=== PATIENT | male | born 1940 | race African-American/Black ===

== ENCOUNTER 2017-02-25 21:54 | Emergency (ER) | payer MEDICARE, OTHER ==
[~2017-02-25] VITALS: Ht 172.7 cm; Wt 79.4 kg
[2017-02-25 22:00] VITALS: BP 199/91
[2017-02-25] MEDS ORDERED: DOXY100C2 PO (22:23)
--- NOTE | 2017-02-25 22:23 | PHYS DOC ---
Past Medical History Past Medical History: High Cholesterol, Hypertension, Other Additional Past Medical Histor: GOUT Past Surgical History: Other Additional Past Surgical Histo: HERNIA Alcohol Use: None Drug Use: None Adult General Chief Complaint Chief Complaint: INSECT BITE [facility] HPI Patient is a 77 year old male who presents with complaint of neck swelling after suffering a tick bite. Patient states that the tick bite occurred 2 days ago. Patient states that he started noticing swelling to the anterior portion of his neck earlier today. Patient denies any difficulty with speech or swallowing. Patient was unable to identify the tick which bit him. Due to the swelling, the patient was concerned about possibility of infection and came to the emergency department for evaluation. Patient denies any other symptoms and states that he is currently in his baseline state of health. Review of Systems Review of Systems Constitutional: Denies fever or chills [] Eyes: Denies change in visual acuity, redness, or eye pain [] HENT: Denies nasal congestion or sore throat [] Respiratory: Denies cough or shortness of breath [] Cardiovascular: No additional information not addressed in HPI [] GI: Denies abdominal pain, nausea, vomiting, bloody stools or diarrhea [] : Denies dysuria or hematuria [] Musculoskeletal: Denies back pain or joint pain [] Integument: Tick bite, swelling in neck [] Neurologic: Denies headache, focal weakness or sensory changes [] Allergies Allergies Allergies Coded Allergies Type Severity Reaction Last Updated Verified No Known Drug Allergies 08/26/15 No Physical Exam Physical Exam Constitutional: Alert, afebrile, no acute distress. [] HENT: Normocephalic, atraumatic, bilateral external ears normal, oropharynx moist, no oral exudates, nose normal. [] Eyes: PERRLA, EOMI, conjunctiva normal, no discharge. [] Neck: 2-1/2 cm swollen indurated lesion on anterior aspect of neck near larynx, freely mobile, surrounding erythema, nontender to palpation. [] Cardiovascular:Heart rate regular rhythm, no murmur [] Lungs & Thorax: Bilateral breath sounds clear to auscultation [] Abdomen: Bowel sounds normal, soft, no tenderness, no masses, no pulsatile masses. [] Skin: Warm, dry, no erythema, no rash. [] Back: No tenderness, no CVA tenderness. [] Extremities: No tenderness, no cyanosis, no clubbing, ROM intact, no edema. [] Neurologic: Alert and oriented X 3, normal motor function, normal sensory function, no focal deficits noted. [] Current Patient Data Vital Signs Vital Signs Date Time Temp Pulse Resp B/P (MAP) Pulse Ox O2 Delivery O2 Flow Rate FiO2 02/25/17 22:00 98.7 90 18 96 Room Air 98.7 EKG EKG Not performed [] Radiology/Procedures Radiology/Procedures Not performed [] Course & Med Decision Making Course & Med Decision Making Pertinent Labs and Imaging studies reviewed. (See chart for details) The patient's swelling appears to be consistent with lymphadenitis. Patient has overlying erythema which may be consistent with target lesion. The patient was started on a 14 day course of doxycycline. Recommended follow-up in one week with patient's primary doctor and return to emergency department for any worsening symptoms. Patient voiced understanding and in agreement with treatment plan. Dragon Disclaimer Dragon Disclaimer This electronic medical record was generated, in whole or in part, using a voice recognition dictation system. Departure Departure Impression: Primary Impression: Tick bite Additional Impression: Lymphadenitis Disposition: 01 HOME, SELF-CARE Condition: IMPROVED Referrals: PERCY LOWERY MD (PCP) Patient Instructions: Wood Tick Bite, [id number] Additional Instructions: You'll be started on doxycycline for treatment of possible Lyme disease transmission. This will consist of a 14 day course of antibiotics. It is recommended that she follow-up with your primary doctor in 1 week for reevaluation. Return to the emergency department for any worsening symptoms. Scripts Doxycycline Hyclate (DOXYCYCLINE HYCLATE) 100 Mg Capsule 1 CAP PO BID, #28 CAP Prov: LATRICIA MENA MD 02/25/17 Problem Qualifiers Primary Impression: Tick bite Encounter type: initial encounter Qualified Codes: W57.XXXA - Bitten or stung by nonvenomous insect and other nonvenomous arthropods, initial encounter LATRICIA MENA MD February 25, 2017 22:23
== END 2017-02-25 22:30 | disposition home or self-care (01) ==
LOC: ER 21:54
DX: S10.96XA Insect bite of unspecified part of neck, initial encounter (principal); I10 Essential (primary) hypertension; E78.00 Pure hypercholesterolemia, unspecified; M10.9 Gout, unspecified; W57.XXXA Bitten or stung by nonvenomous insect and other nonvenomous arthropods, initial encounter; Y93.89 Activity, other specified; Y99.8 Other external cause status; Y92.89 Other specified places as the place of occurrence of the external cause
CPT/HCPCS: 99283

== ENCOUNTER 2017-10-11 23:28 | Emergency (ER) | payer MEDICARE, OTHER ==
[2017-10-12] MEDS: HYDROcodone/APAP 5/325MG 1 TAB TABLET PO (00:14)
[2017-10-12] MEDS: CYCLOBENZAPRINE 10 MG TABLET. PO (00:14)
[2017-10-12] MEDS: IBUPROFEN 600 MG TABLET. PO (00:14)
== END 2017-10-12 00:40 | disposition home or self-care (01) ==
LOC: ER 10-12 00:40
DX: S43.401A Unspecified sprain of right shoulder joint, initial encounter (principal); E78.00 Pure hypercholesterolemia, unspecified; I10 Essential (primary) hypertension; M10.9 Gout, unspecified; X50.9XXA Other and unspecified overexertion or strenuous movements or postures, initial encounter; Y93.89 Activity, other specified; Y92.89 Other specified places as the place of occurrence of the external cause; Y99.8 Other external cause status
CPT/HCPCS: 73030; 99284

== ENCOUNTER 2018-02-10 21:06 | Emergency (ER) | payer MEDICARE, OTHER ==
[2018-02-10] MEDS: predniSONE 20 MG TABLET PO (22:10)
[2018-02-10] MEDS: HYDROcodone/APAP 5/325MG 1 TAB TABLET PO (22:11)
== END 2018-02-10 22:38 | disposition home or self-care (01) ==
LOC: ER 21:06
DX: M10.9 Gout, unspecified (principal); E78.00 Pure hypercholesterolemia, unspecified; I10 Essential (primary) hypertension
CPT/HCPCS: 99283; J7512

== ENCOUNTER 2018-03-22 10:53 | Emergency (ER) | payer MEDICARE, OTHER | END 2018-03-22 12:18 | disposition home or self-care (01) | LOC: ER 12:18 | DX: M18.12 Unilateral primary osteoarthritis of first carpometacarpal joint, left hand (principal); M19.032 Primary osteoarthritis, left wrist; E78.00 Pure hypercholesterolemia, unspecified; I10 Essential (primary) hypertension; M10.9 Gout, unspecified | CPT/HCPCS: 73140; 99284 ==

== ENCOUNTER 2018-05-19 10:29 | Inpatient (IN) | payer MEDICARE, OTHER ==
[~2018-05-19] VITALS: Ht 172.7 cm; Wt 82.1 kg
[~2018-05-19 10:29] MED LIST: ACET-704 PO; CYCL10TA2 PO; DICL100G18 TP; DICL50TA4 PO; DOXY100C2 PO; HYDR-971 PO; METH4TAB2 PO; TRAM50TA PO
--- NOTE | 2018-05-19 12:21 | RAD ---
Acute abdomen series with chest, 3 views, 05/19/2018: HISTORY: Abdominal pain There is mild gaseous distention of small bowel loops. There is very little colonic gas seen. The stomach also appears to be distended. No free air is evident in the abdomen. Moderate multilevel degenerative changes are present in the spine. The heart size and pulmonary vascularity are normal. There is mild streaky atelectasis in the left base. IMPRESSION: Gastric distention with mildly distended small bowel loops suggesting small bowel obstruction. Electronically signed by: Anderson Vang MD (05/19/2018 12:17 PM) [facility]
[2018-05-19 12:42] LABS: BASO % 0 % (0-3); EOS # 0.1 x10^3/uL (0.0-0.7); EOS % 1 % (0-3); HEMATOCRIT 42.5 % (39.0-53.0); HEMOGLOBIN 13.5 g/dL (13.0-17.5); LYMPH # 0.5 x10^3/uL (1.0-4.8); LYMPH % 4 % (24-48); MEAN CORPUSCULAR HEMOGLOBIN 23 pg (25-35); MEAN CORPUSCULAR HGB CONC 32 g/dL (31-37); MEAN CORPUSCULAR VOLUME 71 fL (79-100); MONO # 0.8 x10^3/uL (0.0-1.1); MONO % 6 % (0-9); NEUT # 11.3 x10^3uL (1.8-7.7); NEUT % 89 % (31-73); PLATELET COUNT 213 x10^3/uL (140-400); RED BLOOD COUNT 5.96 x10^6/uL (4.30-5.70); RED CELL DISTRIBUTION WIDTH 17.6 % (11.5-14.5); WHITE BLOOD COUNT 12.7 x10^3/uL (4.0-11.0)
[2018-05-19 12:44] LABS: BILIRUBIN,URINE NEGATIVE (NEG); CLARITY,URINE CLEAR; COLOR,URINE YELLOW; NITRITE,URINE NEGATIVE (NEG); PH,URINE 6.5; PROTEIN,URINE NEGATIVE (NEG-TRACE); UROBILINOGEN,URINE 0.2 mg/dL (0.2 mg/dL)
[2018-05-19 12:52] LABS: RBC,URINE OCC /HPF (0-2); WBC,URINE OCC /HPF (0-4)
[2018-05-19 12:53] LABS: BACTERIA,URINE 0 /HPF (0-FEW); HYALINE CASTS, URINE FEW /HPF
[2018-05-19] MEDS ORDERED: IV NORMAL SALINE 1000ML BAG 1,000 ML IV ONE (13:00)
[2018-05-19] MEDS ORDERED: fentaNYL PF VIAL 100 MCG/2 ML VIAL IV PRN (13:00)
[2018-05-19] MEDS ORDERED: ONDANSETRON PF 4 MG/2 ML VIAL. IV PRN (13:00)
[2018-05-19 13:45] LABS: ALBUMIN 3.7 g/dL (3.4-5.0); ALBUMIN/GLOBULIN RATIO 0.9 (1.0-1.7); CALCIUM 9.7 mg/dL (8.5-10.1); CREATININE 1.5 mg/dL (0.7-1.3); GFR 54.6; POTASSIUM 4.2 mmol/L (3.5-5.1); TOTAL BILIRUBIN 0.6 mg/dL (0.2-1.0); TOTAL PROTEIN 7.7 g/dL (6.4-8.2)
[2018-05-19 14:24] LABS: % BANDS 3 % (0-9); % EOS 1 % (0-5); % LYMPHS 4 % (24-48); % MONOS 7 % (0-10); % SEGS 85 % (35-66); PLT ESTIMATE ADEQUATE (ADEQUATE)
[2018-05-19 14:25] LABS: ANISOCYTOSIS SLIGHT; HYPOCHROMIA SLIGHT
[2018-05-19 14:26] LABS: MICROCYTOSIS MOD
[2018-05-19 14:27] LABS: TARGET CELLS OCC
--- NOTE | 2018-05-19 14:48 | PHYS DOC ---
Past Medical History Past Medical History: Cancer, High Cholesterol, Hypertension, Prostatitis, Other Additional Past Medical Histor: GOUT, PROSTATE CANCER Past Surgical History: Other Additional Past Surgical Histo: INGUINAL HERNIA SX,SEED IMPLANT FOR PROSTATE CA Alcohol Use: None Drug Use: None Adult General Chief Complaint Chief Complaint: ABDOMINAL PAIN HPI HPI Patient is a 78 year old male who presents with abdominal pain and distention. The patient thinks that he over ate a dinner last night. He had increasing abdominal pain throughout the day today. He states that he did have one small watery bowel movement. He denies nausea or vomiting at this time. Review of Systems Review of Systems Constitutional: Denies fever or chills [] Eyes: Denies change in visual acuity, redness, or eye pain [] HENT: Denies nasal congestion or sore throat [] Respiratory: Denies cough or shortness of breath [] Cardiovascular: No additional information not addressed in HPI [] GI: See history of present illness : Denies dysuria or hematuria [] Musculoskeletal: Denies back pain or joint pain [] Integument: Denies rash or skin lesions [] Neurologic: Denies headache, focal weakness or sensory changes [] Endocrine: Denies polyuria or polydipsia [] All other systems were reviewed and found to be within normal limits, except as documented in this note. Allergies Allergies Allergies Coded Allergies Type Severity Reaction Last Updated Verified No Known Drug Allergies 08/26/15 No Physical Exam Physical Exam Constitutional: Well developed, well nourished, no acute distress, non-toxic appearance. [] HENT: Normocephalic, atraumatic, bilateral external ears normal, oropharynx moist, no oral exudates, nose normal. [] Eyes: PERRLA, EOMI, conjunctiva normal, no discharge. [] Neck: Normal range of motion, no tenderness, supple, no stridor. [] Cardiovascular:Heart rate regular rhythm, no murmur [] Lungs & Thorax: Bilateral breath sounds clear to auscultation [] Abdomen: Bowel sounds normal, soft, no tenderness, no masses, no pulsatile masses. [] Skin: Warm, dry, no erythema, no rash. [] Back: No tenderness, no CVA tenderness. [] Extremities: No tenderness, no cyanosis, no clubbing, ROM intact, no edema. [] Neurologic: Alert and oriented X 3, normal motor function, normal sensory function, no focal deficits noted. [] Psychologic: Affect normal, judgement normal, mood normal. [] Current Patient Data Vital Signs Vital Signs Date Time Temp Pulse Resp B/P (MAP) Pulse Ox O2 Delivery O2 Flow Rate FiO2 05/19/18 12:38 92 21 143/75 (97) 98 Room Air 05/19/18 10:35 98.0 98.0 Lab Values Laboratory Tests Test 05/19/18 10:30 05/19/18 10:45 Urine Collection Type Unknown Urine Color Yellow Urine Clarity Clear Urine pH 6.5 Urine Specific [place] 1.020 Urine Protein Negative mg/dL (NEG-TRACE) Urine Glucose (UA) Negative mg/dL (NEG) Urine Ketones (Stick) Negative mg/dL (NEG) Urine Blood Negative (NEG) Urine Nitrite Negative (NEG) Urine Bilirubin Negative (NEG) Urine Urobilinogen Dipstick 0.2 mg/dL (0.2 mg/dL) Urine Leukocyte Esterase Negative (NEG) Urine RBC Occ /HPF (0-2) Urine WBC Occ /HPF (0-4) Urine Bacteria 0 /HPF (0-FEW) Urine Hyaline Casts Few /HPF Urine Mucus Slight /LPF White Blood Count 12.7 x10^3/uL (4.0-11.0) H Red Blood Count 5.96 x10^6/uL (4.30-5.70) H Hemoglobin 13.5 g/dL (13.0-17.5) Hematocrit 42.5 % (39.0-53.0) Mean Corpuscular Volume 71 fL (79-100) L Mean Corpuscular Hemoglobin 23 pg (25-35) L Mean Corpuscular Hemoglobin Concent 32 g/dL (31-37) Red Cell Distribution Width 17.6 % (11.5-14.5) H Platelet Count 213 x10^3/uL (140-400) Neutrophils (%) (Auto) 89 % (31-73) H Lymphocytes (%) (Auto) 4 % (24-48) L Monocytes (%) (Auto) 6 % (0-9) Eosinophils (%) (Auto) 1 % (0-3) Basophils (%) (Auto) 0 % (0-3) Neutrophils # (Auto) 11.3 x10^3uL (1.8-7.7) H Lymphocytes # (Auto) 0.5 x10^3/uL (1.0-4.8) L Monocytes # (Auto) 0.8 x10^3/uL (0.0-1.1) Eosinophils # (Auto) 0.1 x10^3/uL (0.0-0.7) Basophils # (Auto) 0.0 x10^3/uL (0.0-0.2) Segmented Neutrophils % 85 % (35-66) H Band Neutrophils % 3 % (0-9) Lymphocytes % 4 % (24-48) L Monocytes % 7 % (0-10) Eosinophils % 1 % (0-5) Platelet Estimate Adequate (ADEQUATE) Hypochromasia Slight Anisocytosis Slight Microcytosis Mod Target Cells Occ Laboratory Tests 05/19/18 10:45 EKG EKG [] Radiology/Procedures Radiology/Procedures []PATIENT: AGUILAR NOLANACCOUNT: [id number]#: [id number] : 1940 LOCATION: ER AGE: 78 SEX: M EXAM STATUS: REG ER ORD. PHYSICIAN: SHMUEL ALDRICH APRN REASON: abdominal pain PROCEDURE: ACUTE ABDOMEN SERIES Acute abdomen series with chest, 3 views, 05/19/2018: HISTORY: Abdominal pain There is mild gaseous distention of small bowel loops. There is very little colonic gas seen. The stomach also appears to be distended. No free air is evident in the abdomen. Moderate multilevel degenerative changes are present in the spine. The heart size and pulmonary vascularity are normal. There is mild streaky atelectasis in the left base. IMPRESSION: Gastric distention with mildly distended small bowel loops suggesting small bowel obstruction. Electronically signed by: Anderson Vang MD (05/19/2018 12:17 PM) [facility] DICTATED and SIGNED BY: ANDERSON VANG MD DATE: 05/19/18 1052 Course & Med Decision Making Course & Med Decision Making Pertinent Labs and Imaging studies reviewed. (See chart for details) []The patient has been admitted to Dr. Blackwood's service. He has been placed as NPO and is receiving IV fluids in the emergency room. He denies any for pain medication. He is in agreement with this plan. Dragon Disclaimer Dragon Disclaimer This electronic medical record was generated, in whole or in part, using a voice recognition dictation system. Departure Departure Impression: Primary Impression: Bowel obstruction Disposition: ADMITTED INPATIENT Admitting Physician: Pat Blackwood Condition: GOOD Referrals: PERCY LOWERY MD (PCP) SHMUEL ALDRICH APRN May 19, 2018 14:48
[2018-05-19 15:00] VITALS: BP 144/79
[2018-05-19] MEDS: IV NORMAL SALINE 1000ML BAG 1,000 ML IV SCH ×2 (15:52→21:39)
[2018-05-19] MEDS ORDERED: DEXTROSE 50% 25 GM / 50ML DISP.SYRIN. IV PRN (17:30)
[2018-05-19 19:00] VITALS: BP 152/69
--- NOTE | 2018-05-19 19:05 | EKG ---
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
[2018-05-19] MEDS ORDERED: TAMS0.4C2 PO (22:18)
[2018-05-19] MEDS ORDERED: ALPR0.5T6 PO (22:18)
[2018-05-19] MEDS ORDERED: PYRI200T3 PO (22:18)
[2018-05-19] MEDS ORDERED: ALLO300T PO (22:18)
[2018-05-19] MEDS ORDERED: LISI1TAB7 PO (22:18)
[2018-05-19] MEDS ORDERED: LOVA20TA2 PO (22:18)
[2018-05-19 23:00] VITALS: BP 144/68
[2018-05-20 03:00] VITALS: BP 156/60
[2018-05-20 05:32] LABS: CALCIUM 8.6 mg/dL (8.5-10.1); CREATININE 1.4 mg/dL (0.7-1.3); GFR 59.2; POTASSIUM 3.8 mmol/L (3.5-5.1)
[2018-05-20] MEDS: IV NORMAL SALINE 1000ML BAG 1,000 ML IV SCH (05:45)
[2018-05-20 07:15] VITALS: BP 141/70
[2018-05-20] MEDS ORDERED: ASPI-612 PO (07:44)
[2018-05-20] MEDS ORDERED: ALPRAZolam 0.5 MG TABLET PO PRN (07:45)
--- NOTE | 2018-05-20 07:53 | PDOC ---
PROGRESS NOTES Subjective Subjective Patient without complaint. Abdominal pain has resolved. Hungry for breakfast. Objective Objective Vital Signs Date Time Temp Pulse Resp B/P (MAP) Pulse Ox O2 Delivery O2 Flow Rate FiO2 05/20/18 03:00 98.9 89 18 156/60 (92) 97 Room Air 98.9 Intake and Output 05/20/18 06:59 Intake Total 4850 ml Output Total 800 ml Balance 4050 ml Intake Oral 0 ml IV Total 2925 ml Other 1925 ml Output Urine Total 800 ml Physical Exam Abdomen: Normal bowel sounds, Soft, No tenderness Heart: Regular rate Extremities: No edema General: Alert, Oriented X3, No acute distress Lungs: Clear to auscultation Plan Plan of Care 1. Partial SBO - appears to have resolved. Abdominal exam WNL. Trial of clear liquids now and advance at lunch. Home later today if tolerating diet. 2. HTN - continue home meds. 3. CKD III - stable on lab. 4. DM2 - diet-controlled. Comment Review of Relevant I have reviewed the following items mayela (where applicable) has been applied. Labs Laboratory Tests Test 05/19/18 10:30 05/19/18 10:45 05/19/18 13:18 05/19/18 21:37 Urine Collection Type Unknown Urine Color Yellow Urine Clarity Clear Urine pH 6.5 Urine Specific [place] 1.020 Urine Protein Negative mg/dL (NEG-TRACE) Urine Glucose (UA) Negative mg/dL (NEG) Urine Ketones (Stick) Negative mg/dL (NEG) Urine Blood Negative (NEG) Urine Nitrite Negative (NEG) Urine Bilirubin Negative (NEG) Urine Urobilinogen Dipstick 0.2 mg/dL (0.2 mg/dL) Urine Leukocyte Esterase Negative (NEG) Urine RBC Occ /HPF (0-2) Urine WBC Occ /HPF (0-4) Urine Bacteria 0 /HPF (0-FEW) Urine Hyaline Casts Few /HPF Urine Mucus Slight /LPF White Blood Count 12.7 x10^3/uL (4.0-11.0) Red Blood Count 5.96 x10^6/uL (4.30-5.70) Hemoglobin 13.5 g/dL (13.0-17.5) Hematocrit 42.5 % (39.0-53.0) Mean Corpuscular Volume 71 fL (79-100) Mean Corpuscular Hemoglobin 23 pg (25-35) Mean Corpuscular Hemoglobin Concent 32 g/dL (31-37) Red Cell Distribution Width 17.6 % (11.5-14.5) Platelet Count 213 x10^3/uL (140-400) Neutrophils (%) (Auto) 89 % (31-73) Lymphocytes (%) (Auto) 4 % (24-48) Monocytes (%) (Auto) 6 % (0-9) Eosinophils (%) (Auto) 1 % (0-3) Basophils (%) (Auto) 0 % (0-3) Neutrophils # (Auto) 11.3 x10^3uL (1.8-7.7) Lymphocytes # (Auto) 0.5 x10^3/uL (1.0-4.8) Monocytes # (Auto) 0.8 x10^3/uL (0.0-1.1) Eosinophils # (Auto) 0.1 x10^3/uL (0.0-0.7) Basophils # (Auto) 0.0 x10^3/uL (0.0-0.2) Segmented Neutrophils % 85 % (35-66) Band Neutrophils % 3 % (0-9) Lymphocytes % 4 % (24-48) Monocytes % 7 % (0-10) Eosinophils % 1 % (0-5) Platelet Estimate Adequate (ADEQUATE) Hypochromasia Slight Anisocytosis Slight Microcytosis Mod Target Cells Occ Sodium Level 141 mmol/L (136-145) Potassium Level 4.2 mmol/L (3.5-5.1) Chloride Level 103 mmol/L (98-107) Carbon Dioxide Level 32 mmol/L (21-32) Anion Gap 6 (6-14) Blood Urea Nitrogen 27 mg/dL (8-26) Creatinine 1.5 mg/dL (0.7-1.3) Estimated GFR (Cockcroft-Gault) 54.6 BUN/Creatinine Ratio 18 (6-20) Glucose Level 112 mg/dL (70-99) Calcium Level 9.7 mg/dL (8.5-10.1) Total Bilirubin 0.6 mg/dL (0.2-1.0) Aspartate Amino Transf (AST/SGOT) 17 U/L (15-37) Alanine Aminotransferase (ALT/SGPT) 22 U/L (16-63) Alkaline Phosphatase 63 U/L (46-116) Total Protein 7.7 g/dL (6.4-8.2) Albumin 3.7 g/dL (3.4-5.0) Albumin/Globulin Ratio 0.9 (1.0-1.7) Glucose (Fingerstick) 86 mg/dL (70-99) Test 05/20/18 04:00 05/20/18 07:23 Sodium Level 140 mmol/L (136-145) Potassium Level 3.8 mmol/L (3.5-5.1) Chloride Level 106 mmol/L (98-107) Carbon Dioxide Level 27 mmol/L (21-32) Anion Gap 7 (6-14) Blood Urea Nitrogen 21 mg/dL (8-26) Creatinine 1.4 mg/dL (0.7-1.3) Estimated GFR (Cockcroft-Gault) 59.2 Glucose Level 88 mg/dL (70-99) Calcium Level 8.6 mg/dL (8.5-10.1) Glucose (Fingerstick) 96 mg/dL (70-99) Laboratory Tests Test 05/19/18 10:30 05/19/18 10:45 05/19/18 13:18 05/19/18 21:37 Urine Collection Type Unknown Urine Color Yellow Urine Clarity Clear Urine pH 6.5 Urine Specific [place] 1.020 Urine Protein Negative mg/dL (NEG-TRACE) Urine Glucose (UA) Negative mg/dL (NEG) Urine Ketones (Stick) Negative mg/dL (NEG) Urine Blood Negative (NEG) Urine Nitrite Negative (NEG) Urine Bilirubin Negative (NEG) Urine Urobilinogen Dipstick 0.2 mg/dL (0.2 mg/dL) Urine Leukocyte Esterase Negative (NEG) Urine RBC Occ /HPF (0-2) Urine WBC Occ /HPF (0-4) Urine Bacteria 0 /HPF (0-FEW) Urine Hyaline Casts Few /HPF Urine Mucus Slight /LPF White Blood Count 12.7 x10^3/uL (4.0-11.0) Red Blood Count 5.96 x10^6/uL (4.30-5.70) Hemoglobin 13.5 g/dL (13.0-17.5) Hematocrit 42.5 % (39.0-53.0) Mean Corpuscular Volume 71 fL (79-100) Mean Corpuscular Hemoglobin 23 pg (25-35) Mean Corpuscular Hemoglobin Concent 32 g/dL (31-37) Red Cell Distribution Width 17.6 % (11.5-14.5) Platelet Count 213 x10^3/uL (140-400) Neutrophils (%) (Auto) 89 % (31-73) Lymphocytes (%) (Auto) 4 % (24-48) Monocytes (%) (Auto) 6 % (0-9) Eosinophils (%) (Auto) 1 % (0-3) Basophils (%) (Auto) 0 % (0-3) Neutrophils # (Auto) 11.3 x10^3uL (1.8-7.7) Lymphocytes # (Auto) 0.5 x10^3/uL (1.0-4.8) Monocytes # (Auto) 0.8 x10^3/uL (0.0-1.1) Eosinophils # (Auto) 0.1 x10^3/uL (0.0-0.7) Basophils # (Auto) 0.0 x10^3/uL (0.0-0.2) Segmented Neutrophils % 85 % (35-66) Band Neutrophils % 3 % (0-9) Lymphocytes % 4 % (24-48) Monocytes % 7 % (0-10) Eosinophils % 1 % (0-5) Platelet Estimate Adequate (ADEQUATE) Hypochromasia Slight Anisocytosis Slight Microcytosis Mod Target Cells Occ Sodium Level 141 mmol/L (136-145) Potassium Level 4.2 mmol/L (3.5-5.1) Chloride Level 103 mmol/L (98-107) Carbon Dioxide Level 32 mmol/L (21-32) Anion Gap 6 (6-14) Blood Urea Nitrogen 27 mg/dL (8-26) Creatinine 1.5 mg/dL (0.7-1.3) Estimated GFR (Cockcroft-Gault) 54.6 BUN/Creatinine Ratio 18 (6-20) Glucose Level 112 mg/dL (70-99) Calcium Level 9.7 mg/dL (8.5-10.1) Total Bilirubin 0.6 mg/dL (0.2-1.0) Aspartate Amino Transf (AST/SGOT) 17 U/L (15-37) Alanine Aminotransferase (ALT/SGPT) 22 U/L (16-63) Alkaline Phosphatase 63 U/L (46-116) Total Protein 7.7 g/dL (6.4-8.2) Albumin 3.7 g/dL (3.4-5.0) Albumin/Globulin Ratio 0.9 (1.0-1.7) Glucose (Fingerstick) 86 mg/dL (70-99) Test 05/20/18 04:00 05/20/18 07:23 Sodium Level 140 mmol/L (136-145) Potassium Level 3.8 mmol/L (3.5-5.1) Chloride Level 106 mmol/L (98-107) Carbon Dioxide Level 27 mmol/L (21-32) Anion Gap 7 (6-14) Blood Urea Nitrogen 21 mg/dL (8-26) Creatinine 1.4 mg/dL (0.7-1.3) Estimated GFR (Cockcroft-Gault) 59.2 Glucose Level 88 mg/dL (70-99) Calcium Level 8.6 mg/dL (8.5-10.1) Glucose (Fingerstick) 96 mg/dL (70-99) Medications Current Medications Sodium Chloride 1,000 ml @ 1,000 mls/hr 1X ONCE IV Last administered on at 13:05; Start 05/19/18 at 13:00; Stop 05/19/18 at 13:59; Status DC Ondansetron HCl (Zofran) 4 mg PRN Q8HRS PRN IV NAUSEA/VOMITING Last administered on 05/19/18at 14:19; Start 05/19/18 at 13:00; Stop 05/20/18 at 12:59 Fentanyl Citrate (Fentanyl 2ml Vial) 50 mcg PRN Q2HR PRN IV PAIN Last administered on 05/19/18at 14:22; Start 05/19/18 at 13:00; Stop 05/20/18 at 12:59 Sodium Chloride 1,000 ml @ 125 mls/hr Q8H IV Last administered on 05/20/18at 05 :45; Start 05/19/18 at 12:49; Stop 05/20/18 at 12:48 Insulin Human Lispro (HumaLOG) 0-5 UNITS TIDWMEALS SQ ; Start 05/20/18 at 08:00 Dextrose (Dextrose 50%-Water Syringe) 12.5 gm PRN Q15MIN PRN IV SEE COMMENTS; Start 05/19/18 at 17:30 Allopurinol (Zyloprim) 300 mg DAILY PO ; Start 05/20/18 at 09:00 Alprazolam (Xanax) 0.5 mg PRN DAILY PRN PO ANXIETY / AGITATION; Start 05/20/18 at 07:45 Aspirin (Ecotrin) 81 mg DAILY PO ; Start 05/20/18 at 09:00; Status UNV Tamsulosin HCl (Flomax) 0.4 mg DAILYWSUP PO ; Start 05/20/18 at 17:00; Status UNV Non-Formulary Medication (Lisinopril/ Hydrochlorothiazide (Lisinopril-Hctz 20- 25 Mg Tab)) 1 tab DAILY PO ; Start 05/20/18 at 09:00; Status UNV Non-Formulary Medication (Lovastatin ) 20 mg BID PO ; Start 05/20/18 at 09:00; Status UNV Non-Formulary Medication (Pyridoxine HCl (Vitamin B6) (B-6)) 100 mg DAILY PO ; Start 05/20/18 at 09:00; Status UNV Active Scripts Active Aspirin Ec (Aspirin) 81 Mg Tablet.dr 1 Tab PO DAILY Reported B-6 (Pyridoxine HCl (Vitamin B6)) 200 Mg Tablet.er 100 Mg PO DAILY Tamsulosin Hcl 0.4 Mg Cap.er.24h 1 Cap PO DAILYWSUP Allopurinol 300 Mg Tablet 1 Tab PO DAILY Lisinopril-Hctz 20-25 Mg Tab (Lisinopril/Hydrochlorothiazide) 1 Each Tablet 1 Tab PO DAILY Lovastatin 20 Mg Tablet 20 Mg PO BID Alprazolam 0.5 Mg Tablet 0.5 Mg PO PRN PRN Vitals/I & O Vital Sign - Last 24 Hours 05/19/18 05/19/18 05/19/18 05/19/18 10:35 11:08 11:38 12:08 Temp 98.0 98.0 Pulse 102 90 90 90 Resp 20 15 B/P (MAP) 206/100 (135) 173/74 (107) 174/140 (151) 169/75 (106) Pulse Ox 97 94 96 95 O2 Delivery Room Air Room Air Room Air Room Air 05/19/18 05/19/18 05/19/18 05/19/18 12:38 13:08 13:38 14:08 Pulse 92 94 90 86 Resp 21 20 B/P (MAP) 143/75 (97) 186/84 (118) 184/84 (117) 171/81 (111) Pulse Ox 98 97 96 97 O2 Delivery Room Air Room Air Room Air Room Air 05/19/18 05/19/18 05/19/18 05/19/18 14:22 15:00 16:47 19:00 Temp 97.9 98.8 97.9 98.8 Pulse 89 87 Resp 18 B/P (MAP) 144/79 (100) 152/69 (96) Pulse Ox 96 94 97 O2 Delivery Room Air Room Air Room Air Room Air 05/19/18 05/19/18 05/20/18 20:00 23:00 03:00 Temp 98.9 98.9 98.9 98.9 Pulse 88 89 Resp 18 B/P (MAP) 144/68 (93) 156/60 (92) Pulse Ox 97 97 O2 Delivery Room Air Room Air Room Air Intake and Output 05/19/18 05/19/18 05/20/18 14:59 22:59 06:59 Intake Total 1000 ml 1000 ml 2850 ml Output Total 800 ml Balance 1000 ml 1000 ml 2050 ml TULIO MCKENNA MD May 20, 2018 07:53
[2018-05-20] MEDS: INSULIN LISPRO 300 UNITS/3 ML INSULN.PEN. SQ SCH ×2 (08:00→12:00)
[2018-05-20] MEDS ORDERED: LISINOPRIL 20 MG TABLET PO SCH (09:00)
[2018-05-20] MEDS ORDERED: PYRIDOXINE 50 MG TABLET. PO SCH (09:00)
[2018-05-20] MEDS ORDERED: ATORVASTATIN CALCIUM 10 MG TABLET. PO SCH (09:00)
[2018-05-20] MEDS ORDERED: hydroCHLOROthiazide 25 MG TABLET PO SCH (09:00)
[2018-05-20] MEDS ORDERED: ASPIRIN ENTERIC COATED 81 MG TABLET.DR. PO SCH (09:00)
[2018-05-20] MEDS ORDERED: ALLOPURINOL 300 MG TABLET. PO SCH (09:00)
--- NOTE | 2018-05-20 09:59 | SSS ---
ADMIT DATE: 05/20/2018 CHIEF COMPLAINT: Abdominal pain. HISTORY OF PRESENT ILLNESS: The patient is a 78-year-old male who presented to the Emergency Room with the above complaint. He reports that he had been feeling fine until after dinner on the day prior to admission. He admits he may have eaten more than he usually does at this meal. Afterwards, he started to have some epigastric discomfort. He tried taking some bleu-bfw-treyipg medication, but it did not seem to help. His discomfort worsened overnight. He did not have any emesis, but did have some nausea. When his symptoms persisted, he came to the Emergency Room. X-rays showed evidence of a possible small-bowel obstruction and the patient was admitted for further care. PAST MEDICAL HISTORY: Hypertension; hyperlipidemia; BPH; chronic anxiety; gout; prostate cancer; diabetes mellitus type 2, diet controlled; and chronic kidney disease, stage 3. PAST SURGICAL HISTORY: [place] implants to the prostate; hernia repair; ganglion cyst, left wrist. ALLERGIES: The patient has no known drug allergies. HOME MEDICATIONS: Lisinopril/hydrochlorothiazide 20/25 one daily; lovastatin 20 mg b.i.d.; Flomax 0.4 mg daily; allopurinol 300 mg daily; niacin 500 mg at bedtime; Xanax 0.5 mg p.r.n.; aspirin 81 mg daily; vitamin D 50,000 units monthly. FAMILY HISTORY: Noncontributory. SOCIAL HISTORY: The patient is . He has never smoked cigarettes. He does not drink alcohol to excess. 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 REVIEW OF SYSTEMS: The patient denies fever or chills. He denies cough or shortness of breath. He denies chest pain or palpitations. He denies any abdominal pain at this time. He denies constipation. He had a few small loose stools yesterday, but has not had any since he was admitted. He denies dysuria or difficulty urinating. He denies lower extremity edema. PHYSICAL EXAMINATION: GENERAL: The patient is alert and oriented x 3, resting comfortably in bed, in no acute distress. HEENT: PERRL, EOMI, sclerae clear. Oropharynx: Mucous membranes moist. NECK: Supple, without lymphadenopathy. CHEST: Clear to auscultation. CARDIOVASCULAR: Regular rhythm without murmur. ABDOMEN: Soft, nontender throughout. Normoactive bowel sounds are present. EXTREMITIES: Without edema. HOSPITAL COURSE: The patient's lab at admission showed a mildly elevated white blood count at 12.7, but was otherwise remarkable. He was made n.p.o. and kept on IV fluids overnight. The patient had no emesis since admission. He reported that his abdominal pain had completely resolved and he felt hungry for breakfast. He was given a trial of clear liquids at breakfast and his diet was advanced at lunch. He tolerated these meals well with no further abdominal pain and was therefore discharged home after lunch. The patient's chronic medical conditions appear stable and he is to continue his usual medications for hypertension. His chronic kidney disease stage 3 is stable on lab. His diabetes is diet controlled. FINAL DIAGNOSES: 1. Partial small-bowel obstruction. 2. Hypertension. 3. Chronic kidney disease stage 3. 4. Diabetes mellitus type 2, diet controlled. DISCHARGE MEDICATIONS: Remain the same as at admission. FOLLOWUP: Followup is with Dr. Linn as needed. TULIO MCKENNA MD DR: ANJALI/jc JOB#: [id number] / [id number] VITA
[2018-05-20 11:17] VITALS: BP 139/72
[2018-05-20 15:10] VITALS: BP 151/72
[2018-05-20] MEDS ORDERED: TAMSULOSIN 0.4 MG CAP.ER.24H. PO SCH (17:00)
== END 2018-05-20 17:04 | disposition home or self-care (01) | DRG 389 ==
LOC: ER 10:29 → 4 NORTH 12:41
PROVIDERS: ADMIT Family Medicine; ATTEND Family Medicine
DX: K56.600 Partial intestinal obstruction, unspecified as to cause (principal); R65.10 Systemic inflammatory response syndrome (SIRS) of non-infectious origin without acute organ dysfunction; I12.9 Hypertensive chronic kidney disease with stage 1 through stage 4 chronic kidney disease, or unspecified chronic kidney disease; M10.9 Gout, unspecified; N18.3 Chronic kidney disease, stage 3 (moderate); E78.00 Pure hypercholesterolemia, unspecified; K40.90 Unilateral inguinal hernia, without obstruction or gangrene, not specified as recurrent; E11.22 Type 2 diabetes mellitus with diabetic chronic kidney disease; E78.5 Hyperlipidemia, unspecified; N40.0 Benign prostatic hyperplasia without lower urinary tract symptoms; F41.9 Anxiety disorder, unspecified; Z85.46 Personal history of malignant neoplasm of prostate
CPT/HCPCS: 36415; 74022; 80048; 80053; 81001; 82962; 85007; 85025; 93005; 96361; 96374; 96375; J1815; J2405; J3010; J7030; 99285-25

== ENCOUNTER → 2019-03-04 | Outpatient (CLI) | payer MEDICARE, OTHER ==
[~2019-03-04] MED LIST changes: +ALLO300T PO; +ALPR0.5T6 PO; +ASPI-612 PO; +HYDR-3164 PO; -HYDR-971 PO; +LISI1TAB7 PO; +LOVA20TA2 PO; +PYRI200T3 PO; +TAMS0.4C2 PO
[2019-03-04 09:24] LABS: HEMATOCRIT 38.6 % (39.0-53.0)
[2019-03-04 09:31] LABS: ALBUMIN 3.3 g/dL (3.4-5.0); CALCIUM 9.1 mg/dL (8.5-10.1); CREATININE 1.7 mg/dL (0.7-1.3); GFR 47.2; PHOSPHORUS 2.8 mg/dL (2.6-4.7); URIC ACID 4.8 mg/dL (3.5-7.2)
[2019-03-04 19:09] LABS: CREATININE PTH 1.58 mg/dL (0.76-1.27); PHOSPHORUS PTH 2.6 mg/dL (2.5-4.5); PTH INTACT 45 pg/mL (15-65)
[2019-03-05 00:08] LABS: MICRO CREAT RATIO 2.8 mg/g creat (0.0-30.0)
== END | disposition home or self-care (01) ==
LOC: LAB 08:22
PROVIDERS: ATTEND Internal Medicine Nephrology
DX: I12.9 Hypertensive chronic kidney disease with stage 1 through stage 4 chronic kidney disease, or unspecified chronic kidney disease (principal); E11.22 Type 2 diabetes mellitus with diabetic chronic kidney disease; N18.3 Chronic kidney disease, stage 3 (moderate); E55.9 Vitamin D deficiency, unspecified; Z68.28 Body mass index [BMI] 28.0-28.9, adult
CPT/HCPCS: 36415; 80069; 82043; 82306; 82570; 83735; 83970; 84550; 85014; 85018

== ENCOUNTER 2019-04-26 10:05 | Emergency (ER) | payer MEDICARE ==
[~2019-04-26] VITALS: Ht 162.6 cm; Wt 83.9 kg
[~2019-04-26 10:05] MED LIST changes: +ORPH100T PO
[2019-04-26 10:28] VITALS: BP 165/81
[2019-04-26] MEDS ORDERED: KETOROLAC 60 MG/2 ML VIAL. IM ONE (11:00)
[2019-04-26] MEDS ORDERED: methylPREDNISolone SOD SUCC PF 125 MG/2 ML VIAL. IM ONE (11:00)
--- NOTE | 2019-04-26 11:49 | RAD ---
C-spine 3 views. HISTORY: Left-sided neck pain 3 views were taken of the cervical spine with an additional swimmer's view. There is disc space narrowing at C3-4, C5-6 and C6-7 with hypertrophic spurring. There is slight anterior subluxation of C4 relative to C5. There is no acute fracture. There are also hypertrophic changes at C7-T1. Odontoid is poorly seen on the open-mouth views. IMPRESSION: 1. Degenerative spondylosis in the cervical spine. 2. Mild subluxation C4-5. 3. No acute fracture. Electronically signed by: Lavon Peres MD (04/26/2019 11:46 AM) [facility]
[2019-04-26] MEDS ORDERED: IBUP-1007 PO (12:22)
[2019-04-26] MEDS ORDERED: PRED20TA PO (12:22)
--- NOTE | 2019-04-26 12:22 | PHYS DOC ---
Past Medical History Past Medical History: Cancer, High Cholesterol, Hypertension, Prostatitis, Other Additional Past Medical Histor: GOUT, PROSTATE CANCER Past Surgical History: Other Additional Past Surgical Histo: INGUINAL HERNIA SX,SEED IMPLANT FOR PROSTATE CA Alcohol Use: None Drug Use: None Adult General Chief Complaint Chief Complaint: ALTERED MENTAL STATUS [facility] HPI Patient is a 79 year old male who was brought here by his for evaluation of confusion the taking Norflex and Matthews together. HE was evaluated here a few days ago for neck pain, patient said he woke up one morning with pain in the base of his left neck area, no injury. Patient was seen here, diagnosed with muscle strain, he was prescribed Matthews and Norflex to take at home as needed for pain and muscle relaxer. He says since taking the medication he had episode of hallucination dizziness and confusion. he still has neck pain so he came here for evaluation. Patient denies any headache, no chest pain, no trouble breathing. he denies any weakness or numbness in upper extremity. He did not take any of his medication today, he denies any hallucination or confusion THIS MORNING. Denies homicidal, suicidal ideation. Review of Systems Review of Systems Constitutional: Denies fever or chills [] Eyes: Denies change in visual acuity, redness, or eye pain [] HENT: Denies nasal congestion or sore throat [] Respiratory: Denies cough or shortness of breath [] Cardiovascular: No additional information not addressed in HPI [] GI: Denies abdominal pain, nausea, vomiting, bloody stools or diarrhea [] : Denies dysuria or hematuria [] Musculoskeletal: Denies back pain or joint pain. POSITIVE FOR NECK PAIN Integument: Denies rash or skin lesions [] Neurologic: Denies headache, focal weakness or sensory changes. Positive for episode of hallucination, confusion. Endocrine: Denies polyuria or polydipsia [] All other systems were reviewed and found to be within normal limits, except as documented in this note. Current Medications Current Medications Current Medications Medications (Trade) Dose Ordered Sig/Jovany Start Time Stop Time Status Last Admin Dose Admin Ketorolac Tromethamine (Toradol Im) 60 mg 1X ONCE 04/26/19 11:00 04/26/19 11:01 DC 04/26/19 10:40 60 MG Methylprednisolone Sodium Succinate (SOLU-Medrol 125MG VIAL) 125 mg 1X ONCE 04/26/19 11:00 04/26/19 11:01 DC 04/26/19 10:40 125 MG Allergies Allergies Allergies Coded Allergies Type Severity Reaction Last Updated Verified No Known Drug Allergies 08/26/15 No Physical Exam Physical Exam Constitutional: Well developed, well nourished, no acute distress, non-toxic appearance. [] HENT: Normocephalic, atraumatic, bilateral external ears normal, oropharynx moist, no oral exudates, nose normal. [] Eyes: PERRLA, EOMI, conjunctiva normal, no discharge. [] Neck: Normal range of motion, no tenderness, supple, no stridor. [] Cardiovascular:Heart rate regular rhythm, no murmur [] Lungs & Thorax: Bilateral breath sounds clear to auscultation [] Abdomen: Bowel sounds normal, soft, no tenderness, no masses, no pulsatile masses. [] Skin: Warm, dry, no erythema, no rash. [] Back: No tenderness, no CVA tenderness. [] Extremities: No tenderness, no cyanosis, no clubbing, ROM intact, no edema. [] Neurologic: Alert and oriented X 3, normal motor function, normal sensory function, no focal deficits noted. [] Psychologic: Affect normal, judgement normal, mood normal. [] Current Patient Data Vital Signs Vital Signs Date Time Temp Pulse Resp B/P (MAP) Pulse Ox O2 Delivery O2 Flow Rate FiO2 04/26/19 10:28 98.1 106 20 165/81 (109) 97 Room Air 98.1 EKG EKG [] Radiology/Procedures Radiology/Procedures [][facility] [address] [place] [address] IMAGING REPORT Signed PATIENT: AGUILAR NOLAN ACCOUNT: [id number] : 1940 LOCATION: ER AGE: 79 SEX: M EXAM STATUS: REG ER ORD. PHYSICIAN: CORNELIO SOL DO REASON: LEFT SIDE NECK PAIN FOR 4 DAYS. UNABLE TO RAISE CHIN PROCEDURE: CERVICAL SPINE 2-3V C-spine 3 views. HISTORY: Left-sided neck pain 3 views were taken of the cervical spine with an additional swimmer's view. There is disc space narrowing at C3-4, C5-6 and C6-7 with hypertrophic spurring. There is slight anterior subluxation of C4 relative to C5. There is no acute fracture. There are also hypertrophic changes at C7-T1. Odontoid is poorly seen on the open-mouth views. IMPRESSION: 1. Degenerative spondylosis in the cervical spine. 2. Mild subluxation C4-5. 3. No acute fracture. Electronically signed by: Lavon Peres MD (04/26/2019 11:46 AM) [facility] DICTATED and SIGNED BY: LAVON PERES MD DATE: 04/26/19 1146 Course & Med Decision Making Course & Med Decision Making Pertinent Labs and Imaging studies reviewed. (See chart for details) Patient was given a shot of steroid and Toradol in ER, he felt much better.. Patient WILL be discharged home with prednisone and anti-inflammatory medication. He will need to follow with his family doctor for further evaluation if his symptoms are not improving IN A FEW DAY. Dragon Disclaimer Dragon Disclaimer This electronic medical record was generated, in whole or in part, using a voice recognition dictation system. Departure Departure Impression: Primary Impression: Torticollis, acute Disposition: 01 HOME, SELF-CARE Condition: IMPROVED Referrals: PERCY LOWERY MD (PCP) FOLLOW UP WITH YOUR DOCTOR NEXT WEEK. DO NOT COMBINE HYDROCODONE AND NORFLEX TOGETHER. Patient Instructions: Torticollis, Acute Scripts Ibuprofen (IBUPROFEN) 600 Mg Tablet 600 MG PO PRN Q8HRS PRN for PAIN for 5 Days, #20 TAB Prov: CORNELIO SOL DO 04/26/19 Prednisone (PREDNISONE) 20 Mg Tablet 2 TAB PO DAILY for 7 Days, #14 TAB Prov: CORNELIO SOL DO 04/26/19 CORNELIO SOL DO Apr 26, 2019 12:22
== END 2019-04-26 12:39 | disposition home or self-care (01) ==
LOC: ER 10:05
DX: M43.6 Torticollis (principal); R42 Dizziness and giddiness; R44.3 Hallucinations, unspecified; R41.0 Disorientation, unspecified; M47.812 Spondylosis without myelopathy or radiculopathy, cervical region; E78.00 Pure hypercholesterolemia, unspecified; I10 Essential (primary) hypertension; M10.9 Gout, unspecified
CPT/HCPCS: 72040; 96372; 99284; J1885; J2930

== ENCOUNTER → 2019-06-10 | Outpatient (CLI) | payer MEDICARE ==
[~2019-06-10] MED LIST changes: +IBUP-1007 PO; +LISI1TAB20 PO; -LISI1TAB7 PO; +PRED20TA PO
--- NOTE | 2019-06-10 08:28 | RAD ---
Bilateral lower extremity arterial ultrasound History: Left toe ulcer Findings: Multiple grayscale, color, and duplex spectral analysis sonographic images were acquired of the lower extremity arteries bilaterally. There are no previous similar exams. Diffuse atherocalcific disease identified involving left lower external arterial vasculature. Velocities in cm/sec: LEFT: Common femoral artery 100 with triphasic flow Profunda femoris artery 112 with monophasic flow Proximal SFA no flow detected Mid SFA no flow detected Distal SFA no flow detected Popliteal artery 20 Anterior tibial artery no flow detected Dorsalis pedis artery no flow detected Posterior tibial artery 34 Peroneal artery 40 Monophasic flow is identified from the popliteal artery and more distally where flow is detected. Impression: No flow detected involving the superficial femoral artery, anterior tibial artery, and dorsalis pedis arteries with atheromatous and calcific findings compatible with chronic occlusion. Diminished flow more distally in the left lower extremity also seen. Monophasic flow of the profunda femoris artery which is suggestive of diffuse atherosclerotic disease. Electronically signed by: Emmanuel Tinoco MD (06/10/2019 8:25 AM) [facility]
--- NOTE | 2019-06-10 08:56 | RAD ---
3 view study of the toes of the left foot Clinical indications: Second toe ulcer. FINDINGS: No acute fracture or dislocation or lytic process is evident. No soft tissue air is seen. 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 IMPRESSION: No acute osseous abnormality. Electronically signed by: Florian Dyer MD (06/10/2019 8:53 AM) [facility]
== END | disposition home or self-care (01) ==
LOC: US 07:34
PROVIDERS: ATTEND Podiatrist
DX: M19.072 Primary osteoarthritis, left ankle and foot (principal); M21.612 Bunion of left foot; L97.429 Non-pressure chronic ulcer of left heel and midfoot with unspecified severity; I70.202 Unspecified atherosclerosis of native arteries of extremities, left leg
CPT/HCPCS: 73660; 93926

== ENCOUNTER → 2019-06-16 | Outpatient (CLI) | payer MEDICARE ==
[~2019-06-16] MED LIST changes: +CONTRAST GIVEN. MC PRN; +IOHEXOL 350 MG/ML 100 ML VIAL. IV ONE; +METO25TA4 PO; +NIAC500T PO
[2019-06-16 08:41] LABS: CREATININE 1.6 mg/dL (0.7-1.3); GFR 50.6
--- NOTE | 2019-06-16 14:46 | RAD ---
CLINICAL HISTORY: DVT, nonhealing ulceration COMPARISON: none TECHNIQUE:CT angiography of the abdomen, pelvis and lower extremities following the administration of intravenous contrast. Axial, coronal and sagittal reformatted images were obtained. 3-D reformats were generated including MIP images. ---PQRS compliance statement - One or more of the following individualized dose reduction techniques were utilized for this study: 1. Automated exposure control 2. Adjustment of the mA and/or kV according to patient size 3. Use of iterative reconstruction technique--- FINDINGS: CT ANGIOGRAM: Intermittent atherosclerotic calcifications and atheromatous plaque of the visualized aorta without high-grade stenosis. Inferior to the KM there is approximately 15 percent luminal narrowing. There is approximately 40 percent narrowing at the origin of the celiac trunk with atheromatous plaque. The origins of the left gastric, splenic and hepatic arteries are grossly patent. SMA is widely patent. There is approximately 50 percent narrowing at the origin of the KM, otherwise patent. Common iliac arteries bilaterally demonstrate abdomen atherosclerotic plaque with intermittent luminal narrowing up to 40 percent. Left common iliac artery is occluded at the origin. The proximal portion of the right internal iliac artery is patent however distally there is associated severe narrowing. The external iliac arteries are widely patent bilaterally. Common femoral arteries are also patent bilaterally with intermittent atherosclerotic calcifications. There is occlusion of the superficial femoral artery bilaterally. However there is reconstitution of flow at the popliteal artery bilaterally from collateral flow. The anterior tibial artery is not seen although the posterior tibialis and peroneal artery are patent with in-line flow to the ankle. ADDITIONAL FINDINGS IN THE ABDOMEN, PELVIS AND LOWER EXTREMITIES: Lower chest: Emphysematous changes in the lung bases bilaterally. Associated linear opacities likely scarring/atelectasis. Calcified granuloma left lower lobe. Abdomen and pelvis: Exam is limited given arterial phase of contrast. Gallbladder is contracted. No biliary duct dilatation. Pancreas is normal. Spleen is unremarkable. Adrenal glands are normal in appearance. Symmetric nephrograms. No focal renal lesion. No hydronephrosis. No hydroureter. Bladder is unremarkable. Moderate colonic stool content is seen. Colonic diverticulosis without evidence for acute diverticulitis. Appendix is normal. No abdominal or pelvic ascites. No abdominal or pelvic lymphadenopathy by size criteria. Brachytherapy seeds are seen within the prostate. Bones: Multilevel degenerative changes of the spine are seen. Scattered sclerotic lesions particularly within the lower lumbar spine, nonspecific but in the setting of known malignancy may represent metastatic disease. Hip joint degenerative changes are seen. SI joint degenerative changes are also seen. Chondrocalcinosis left knee. IMPRESSION: 1. Occlusion of the SFA bilaterally with reconstitution of flow in the popliteal artery via collaterals. 2. Left internal iliac artery occlusion. Distal right internal iliac artery narrowing. 3. Additional atherosclerotic disease described in detail above. Electronically signed by: Mulugeta Ceja MD (06/16/2019 2:43 PM) [facility]
== END | disposition home or self-care (01) ==
LOC: CT 07:40
PROVIDERS: ATTEND Family Medicine
DX: I70.203 Unspecified atherosclerosis of native arteries of extremities, bilateral legs (principal); I74.5 Embolism and thrombosis of iliac artery; I70.0 Atherosclerosis of aorta; I70.8 Atherosclerosis of other arteries; J43.9 Emphysema, unspecified; J84.10 Pulmonary fibrosis, unspecified; K82.0 Obstruction of gallbladder; K57.30 Diverticulosis of large intestine without perforation or abscess without bleeding; M53.86 Other specified dorsopathies, lumbar region; E11.622 Type 2 diabetes mellitus with other skin ulcer; M11.262 Other chondrocalcinosis, left knee; I10 Essential (primary) hypertension; Z79.01 Long term (current) use of anticoagulants
CPT/HCPCS: 36415; 75635; 82565; Q9967

== ENCOUNTER 2019-07-30 06:55 | Outpatient (CLI) | payer MEDICARE ==
[~2019-07-30] VITALS: Ht 167.6 cm; Wt 78.0 kg
[2019-07-30] VITALS (13 sets, daily range): BP systolic 153–210; BP diastolic 61–108
[~2019-07-30 06:55] MED LIST changes: -CONTRAST GIVEN. MC PRN; -IOHEXOL 350 MG/ML 100 ML VIAL. IV ONE; -METO25TA4 PO; -NIAC500T PO
[2019-07-30] MEDS ORDERED: NIAC500T PO (07:27)
[2019-07-30 07:55] LABS: BASO # 0.1 x10^3/uL (0.0-0.2); BASO % 1 % (0-3); EOS # 0.1 x10^3/uL (0.0-0.7); EOS % 2 % (0-3); HEMATOCRIT 37.8 % (39.0-53.0); HEMOGLOBIN 11.8 g/dL (13.0-17.5); LYMPH # 1.3 x10^3/uL (1.0-4.8); LYMPH % 17 % (24-48); MEAN CORPUSCULAR HEMOGLOBIN 22 pg (25-35); MEAN CORPUSCULAR HGB CONC 31 g/dL (31-37); MEAN CORPUSCULAR VOLUME 71 fL (79-100); MONO # 0.6 x10^3/uL (0.0-1.1); MONO % 8 % (0-9); NEUT # 5.7 x10^3/uL (1.8-7.7); NEUT % 73 % (31-73); PLATELET COUNT 197 x10^3/uL (140-400); RED BLOOD COUNT 5.36 x10^6/uL (4.30-5.70); RED CELL DISTRIBUTION WIDTH 16.8 % (11.5-14.5); WHITE BLOOD COUNT 7.9 x10^3/uL (4.0-11.0)
[2019-07-30 07:58] LABS: CALCIUM 9.7 mg/dL (8.5-10.1); CREATININE 1.6 mg/dL (0.7-1.3); GFR 50.6; POTASSIUM 3.9 mmol/L (3.5-5.1)
[2019-07-30] MEDS ORDERED: MIDAZOLAM HCL/PF 2 MG/2 ML VIAL. ONE ×2 (08:00→08:01)
[2019-07-30] MEDS ORDERED: fentaNYL PF VIAL 100 MCG/2 ML VIAL ONE (08:01)
[2019-07-30] MEDS ORDERED: FLUMAZENIL 0.5 MG/5 ML VIAL. IV ONE (08:01)
[2019-07-30] MEDS ORDERED: HEPARIN for IV BOLUS 10,000 UNIT/10 ML VIAL. ONE (08:01)
[2019-07-30] MEDS ORDERED: NALOXONE 0.4 MG/ML VIAL. ONE (08:01)
[2019-07-30 08:03] LABS: PROTHROMBIN TIME PATIENT 15.2 SEC (11.7-14.0)
[2019-07-30] MEDS ORDERED: IV NORMAL SALINE 500ML BAG 300 ML IV ONE (08:30)
[2019-07-30 08:42] LABS: PLT ESTIMATE ADEQUATE (ADEQUATE)
[2019-07-30 08:44] LABS: POIKILOCYTOSIS SLIGHT; POLYCHROMASIA SLIGHT; TARGET CELLS FEW
[2019-07-30 08:45] LABS: ANISOCYTOSIS SLIGHT
[2019-07-30] MEDS ORDERED: LIDOCAINE WITH 8.4% SOD BICARB 3 ML DISP.SYRIN. ONE (09:01)
[2019-07-30] MEDS ORDERED: IODIXANOL 320 MG/ML 100 ML VIAL. ONE (09:01)
--- NOTE | 2019-07-30 09:07 | NUR ---
Per Dr. Cruz, patient to receive Normal Saline 300ml bolus prior to Abdominal Aortogram with runoff due Cr 1.6. Bolus completed and patient transferred to IR for procedure.
[2019-07-30] MEDS ORDERED: IODIXANOL 320 MG/ML 50ML VIAL. ONE (11:03)
[2019-07-30] MEDS ORDERED: IV NORMAL SALINE 1000ML BAG 1,000 ML IV SCH (12:00)
[2019-07-30] MEDS ORDERED: LIDOCAINE WITH 8.4% SOD BICARB 3 ML DISP.SYRIN. IJ ONE (12:00)
[2019-07-30] MEDS ORDERED: fentaNYL PF VIAL 100 MCG/2 ML VIAL IV ONE (12:00)
[2019-07-30] MEDS ORDERED: MIDAZOLAM HCL/PF 2 MG/2 ML VIAL. IV ONE (12:00)
[2019-07-30] MEDS ORDERED: HEPARIN for IV BOLUS 10,000 UNIT/10 ML VIAL. IART ONE (12:00)
[2019-07-30] MEDS ORDERED: IODIXANOL 320 MG/ML 100 ML VIAL. IART ONE (12:00)
[2019-07-30] MEDS ORDERED: CONTRAST GIVEN. MC PRN (12:15)
--- NOTE | 2019-07-30 12:23 | PDOC ---
BRIEF OPERATIVE NOTE Pre-Op Diagnosis PAD Post-Op Diagnosis same Procedure Performed Left leg arteriogram and left iliac artery stent Surgeon Nancy Anesthesia Type: Conscious Sedation Findings 50% left common iliac artery stenosis with large ulceration resolved s/p stent. Occluded left internal iliac artery. Patent left external iliac and common femoral arteries. Occlusion of the proximal SFA with reconstitution of the mid pop by numerous well developed collaterals from the patent DFA. There is a severe weblike stenosis of the mid DFA. Pop provides inline flow to the PT which is patent to the foot. AT is occluded entirely and the DP is not seen. Peroneal artery is patent to the ankle but with diminished flow suggesting focal origin stenosis, though this could not be well depicted despite high contrast volume injections. Attempts to recanalize the SFA and proximal Pop were unsuccessful. Complications No immediate ANNETTE BRANDON MD Jul 30, 2019 12:23
--- NOTE | 2019-07-30 12:25 | PDOC ---
MODERATE SEDATION ASSESSMENT RISKS/ALTERNATIVES Risks/Alternatives Risks and alternatives of this type of sedation and procedure discussed with: RISK/ALTERNATIVES: Patient H & P ON CHART H & P H & P on chart and reviewed for co-morbid conditions and appropriate labs. H&P ON CHART: Yes STATUS PREG STATUS ASSESSED: Yes MEDS/ALLERGIES REVIEWED Meds/Allergies Reviewed Medications and Allergies including time and route of recently administered narcotics and sedatives. MEDS/ALLERGIES REVIEWED: Yes ASA RATING ASA RATING: II AIRWAY ASSESSMENT Airway Assessment Airway patency, oral function limitations, presence of caps, crowns, dentures, partials, and ability to extend neck assessed. AIRWAY ASSESSMENT: Yes MALLAMPATI SCORE MALLAMPATI SCORE: II PRE-SEDATION ASSESSMENT PRE-SEDATION ASSESSMENT: Yes ANNETTE BRANDON MD Jul 30, 2019 12:25
--- NOTE | 2019-07-30 12:25 | PDOC1 ---
History and Physical Date of Procedure Date of Admission History of Present Illness Reason for Visit PAD Past Medical History Past Medical History see nursing pre-op assessment Current Medications Current Medications Current Medications Midazolam HCl (Versed) 2 mg STK-MED ONCE .ROUTE ; Start 07/30/19 at 08:00; Stop 07/30/19 at 08:02; Status DC Midazolam HCl (Versed) 2 mg STK-MED ONCE .ROUTE ; Start 07/30/19 at 08:01; Stop 07/30/19 at 08:02; Status DC Fentanyl Citrate (Fentanyl 2ml Vial) 100 mcg STK-MED ONCE .ROUTE ; Start 07/30/19 at 08:01; Stop 07/30/19 at 08:02; Status DC Flumazenil (Romazicon) 0.5 mg STK-MED ONCE IV ; Start 07/30/19 at 08:01; Stop 07/30/19 at 08:02; Status DC Naloxone HCl (Narcan) 0.4 mg STK-MED ONCE .ROUTE ; Start 07/30/19 at 08:01; Stop 07/30/19 at 08:02; Status DC Heparin Sodium (Porcine) (Heparin Sodium) 10,000 unit STK-MED ONCE .ROUTE ; Start 07/30/19 at 08:01; Stop 07/30/19 at 08:02; Status DC Sodium Chloride 300 ml @ 300 mls/hr 1X ONCE IV Last administered on 07/30/19at 08:20; Start 07/30/19 at 08:30; Stop 07/30/19 at 09:29; Status DC Iodixanol (Visipaque 320) 100 ml STK-MED ONCE .ROUTE ; Start 07/30/19 at 09:01; Stop 07/30/19 at 09:01; Status DC Lidocaine HCl (Buffered Lidocaine 1%) 3 ml STK-MED ONCE .ROUTE ; Start 07/30/19 at 09:01; Stop 07/30/19 at 09:02; Status DC Heparin Sodium/ Sodium Chloride 1,000 ml @ As Directed STK-MED ONCE .ROUTE ; Start 07/30/19 at 09:01; Stop 07/30/19 at 09:02; Status DC Iodixanol (Visipaque 320) 50 ml STK-MED ONCE .ROUTE ; Start 07/30/19 at 11:03; Stop 07/30/19 at 11:03; Status DC Heparin Sodium/ Sodium Chloride 500 ml @ As Directed STK-MED ONCE .ROUTE ; Start 07/30/19 at 11:38; Stop 07/30/19 at 11:38; Status DC Heparin Sodium (Porcine) (Heparin Sodium) 5,000 unit 1X ONCE IART ; Start 07/30/19 at 12:00; Stop 07/30/19 at 12:06; Status DC Heparin Sodium/ Sodium Chloride (HEPARIN for ARTERIAL LINE FLUSH) 2,000 unit 1X ONCE IART ; Start 07/30/19 at 12:00; Stop 07/30/19 at 12:06; Status DC Lidocaine HCl (Buffered Lidocaine 1%) 6 ml 1X ONCE IJ ; Start 07/30/19 at 12:00; Stop 07/30/19 at 12:06; Status DC Midazolam HCl (Versed) 1.5 mg 1X ONCE IV ; Start 07/30/19 at 12:00; Stop 07/30/19 at 12:06; Status DC Fentanyl Citrate (Fentanyl 2ml Vial) 75 mcg 1X ONCE IV ; Start 07/30/19 at 12:00; Stop 07/30/19 at 12:06; Status DC Iodixanol (Visipaque 320) 130 ml 1X ONCE IART ; Start 07/30/19 at 12:00; Stop 07/30/19 at 12:06; Status DC Info (CONTRAST GIVEN -- Rx MONITORING) 1 each PRN DAILY PRN MC SEE COMMENTS; Start 07/30/19 at 12:15; Stop 08/01/19 at 12:14 Active Scripts Active Ibuprofen 600 Mg Tablet 600 Mg PO PRN Q8HRS PRN 5 Days Aspirin Ec (Aspirin) 81 Mg Tablet. 1 Tab PO DAILY Reported Niaspan (Niacin) 500 Mg Tab.er.24h 1 Tab PO QHS B-6 (Pyridoxine HCl (Vitamin B6)) 200 Mg Tablet.er 100 Mg PO DAILY Tamsulosin Hcl 0.4 Mg Cap.er.24h 1 Cap PO DAILYWSUP Allopurinol 300 Mg Tablet 1 Tab PO DAILY Lisinopril-Hctz 20-25 Mg Tab (Lisinopril/Hydrochlorothiazide) 1 Each Tablet 1 Tab PO DAILY Lovastatin 20 Mg Tablet 20 Mg PO BID Alprazolam 0.5 Mg Tablet 0.5 Mg PO PRN PRN Allergies Allergies: Coded Allergies: No Known Drug Allergies (Unverified , 08/26/15) Physical Exam Vital Signs Vital Signs Date Time Temp Pulse Resp B/P (MAP) Pulse Ox O2 Delivery O2 Flow Rate FiO2 07/30/19 12:05 73 12 100 Room Air 2.0 07/30/19 07:33 97.8 172/79 (110) 97.8 Other see nursing pre-op assessment Assessment Assessment PAD Plan Plan Bilateral Lower Extremity angio with left leg intervention ANNETTE BRANDON MD Jul 30, 2019 12:24
[2019-07-30] MEDS ORDERED: CLOPIDOGREL BISULFATE 75 MG TABLET PO ONE (13:00)
[2019-07-30] MEDS ORDERED: hydrALAZINE 20 MG/ML VIAL. IVP PRN (13:00)
[2019-07-30] MEDS ORDERED: CLOPIDOGREL BISULFATE 75 MG TABLET ONE (14:11)
--- NOTE | 2019-07-30 14:56 | NUR ---
Dr. Cruz handwritten prescription for Plavix 75mg 1 tablet daily for 6 weeks given to patient.
--- NOTE | 2019-07-30 15:22 | NUR ---
Patient transferred to [id number] to continue IVF hydration after Femoral Runoff until 6pm. Report called to BONG Christopher on .
--- NOTE | 2019-07-30 15:28 | RAD ---
Procedure: Left lower extremity arteriogram, left common iliac artery stent placement. Clinical Indication: 79-year-old with nonhealing wound of the second left toe. Sedation: Conscious sedation was administered with a total intraprocedural [id number] time of 160 minutes. The patient was monitored by a qualified independent observer throughout the time of sedation. Please refer to the medical record for exact doses of medications utilized to achieve moderate sedation. Antibiotics: None Exposure: Kerma-Area Product: 250 Gycm2 Contrast: 130 cc of Omnipaque 320 contrast media. Sterility: All elements of maximal sterile barrier technique including the use of a cap, mask, sterile gown, sterile gloves, large sterile sheet, appropriate hand hygiene, and 2% chlorhexidine for cutaneous antisepsis (or acceptable alternative antiseptic per current guidelines) were followed for this procedure. Consent: The procedure was explained in its entirety to the patient or the patients designated premium service representative by a member of the treatment team, including a discussion of the risks, benefits and commonly accepted alternatives to the procedure, as well as the expected consequences of no therapy whatsoever. Discussion of the risks included, but was not limited to, those that are most frequent and those that are rare but possibly severe or life-threatening, as well as the possibility of unforeseen complications. Technique and Findings: Following informed consent, the patient was prepped and draped in the usual sterile fashion. Ultrasound interrogation of the right groin revealed patency of the right common femoral artery. A hardcopy image was recorded as a 21-gauge micropuncture needle was used to gain access to this vessel. The needle was exchanged over wire for a 5 Swiss sheath. A flush catheter was advanced in the abdominal aorta and contrast angiography of the pelvis was performed in multiple obliquities. This reveals a 50% stenosis of the distal left common iliac artery with ulceration. The right common iliac artery is patent with mild atherosclerosis. Bilateral external iliac and common femoral arteries are patent as well. The right internal iliac artery is patent. 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 The flush catheter was then used in conjunction with a wire to gain access to the contralateral left common femoral artery. The flush catheter and short sheath were exchanged for 6 Swiss Ansell sheath which was advanced to the left common femoral artery. Contrast angiography of the thigh to the level of the knee was performed using hand injections. There is complete occlusion of the superficial femoral artery and high popliteal artery, with reconstitution of the mid popliteal artery via numerous well-developed collaterals derived from the profunda. There is weblike high-grade stenosis of the profunda proximally 6 cm distal to its origin. An angled catheter and wire were then used to probe the SFA occlusion. Multiple catheter wire, and images were utilized, and eventually seminal access was achieved to the level of the high popliteal artery. Despite numerous maneuvers however, reentry could not be achieved, and recanalization was abandoned. The catheter was removed. A 10 mm x 40 mm self expanding stent was then deployed across the left common iliac artery stenosis and postdilated using a 10 mm x 40 mm angioplasty balloon. Completion angiography demonstrated excellent angiographic result, with some new narrowing seen in the proximal left external iliac artery, which is circumferential, and felt to likely represent spasm. This was confirmed as it was seen to be improved on subsequent imaging. A power injection angiogram of the left lower extremity was then performed better assess the runoff. Despite robust collaterals, these runoff images are suboptimal. Nevertheless, it does appear that there is patency of the popliteal artery from the superior aspect of the patella to its bifurcation. There is patency of the proximal 2 cm of the anterior tibial artery, with abrupt occlusion throughout the remainder of the anterior tibial artery. The dorsalis pedis artery appears occluded as well. The tibioperoneal trunk is short, measuring about 5 mm in length, and is notable for severe short segment atherosclerosis which limits flow into otherwise patent posterior tibial and peroneal arteries. The posterior tibial artery is recanalized at the mid calf by numerous geniculate collaterals, and remains patent with in-line flow to the foot. Recanalization of the peroneal artery is not identified however it is seen to be patent to the level the ankle, with slow flow. The sheath was then withdrawn to the right external iliac artery and contrast angiography was performed to assess for suitability of a closure device. A star close device was then successfully utilized to obtain hemostasis. Complications: No immediate Impression: 1. Occlusion of the entire SFA and proximal popliteal artery. Multiple attempts to recanalize were unsuccessful. 2. Moderate left common iliac artery stenosis with large deep ulceration. This was successfully treated with stenting. 3. Occluded anterior tibial artery in its entirety. 4. Subtotal occlusion of a short 5 mm tibial peroneal trunk, with patent posterior tibial and peroneal arteries distally. Posterior tibial is patent to the foot. The posterior tibial artery is reconstituted the mid calf by numerous geniculate collaterals. The peroneal artery collateral is not easily identified. Due to chronic renal insufficiency, and a contrast void 130 cc, evaluation of the right leg was deferred, and the patient was transferred for hydration.
--- NOTE | 2019-07-30 18:10 | NUR ---
Discharge Note: MARCELA NOLAN Discharge instructions and discharge home medications reviewed with Patient and a copy given. All questions have been answered and understanding verbalized. The following instructions and handouts were given: discharge instructions, new prescriptions, education and follow up recommendations. Discontinued lines and drains: Peripheral IV discontinued intact. Patient discharged to Home or Self Care with Spouse via Wheelchair off unit by [employer].
== END 2019-07-30 18:27 | disposition home or self-care (01) ==
LOC: INTRAD 06:55
PROVIDERS: ATTEND Surgery Vascular Surgery
DX: I70.248 Atherosclerosis of native arteries of left leg with ulceration of other part of lower leg (principal); L97.828 Non-pressure chronic ulcer of other part of left lower leg with other specified severity; Z79.82 Long term (current) use of aspirin
CPT/HCPCS: 36415; 37221; 75625; 75716; 76937; 80048; 85025; 85610; 99152; 99153; A4215; C1713; C1725; C1760; C1769; C1892; C1894; J1644; J2250; J3010; J7030; J7040; Q9967; 75710; G0269

== ENCOUNTER 2019-08-05 05:50 | Inpatient (IN) | payer MEDICARE ==
[2019-08-05] VITALS (11 sets, daily range): BP systolic 96–149; BP diastolic 48–67
[~2019-08-05] VITALS: Ht 167.6 cm; Wt 89.6 kg
[~2019-08-05 05:50] MED LIST changes: +NIAC500T PO
[2019-08-05] MEDS ORDERED: HEPARIN SODIUM 5,000 UNIT in IV NORMAL SALINE 500ML BAG 500 ML IRR ONE (06:00)
[2019-08-05] MEDS ORDERED: fentaNYL PF VIAL 100 MCG/2 ML VIAL IV PRN (07:00)
[2019-08-05] MEDS ORDERED: HYDROmorphone 2 MG/ML VIAL IV PRN (07:00)
[2019-08-05] MEDS ORDERED: ONDANSETRON PF 4 MG/2 ML VIAL. IV PRN ×2 (07:00→07:45)
[2019-08-05] MEDS ORDERED: PROCHLORPERAZINE 10 MG/2 ML VIAL. IV PRN (07:00)
[2019-08-05] MEDS ORDERED: MORPHINE SULFATE 2 MG/ML VIAL. IV PRN ×2 (07:00→07:45)
[2019-08-05] MEDS ORDERED: INSULIN LISPRO 100 UNIT/ML 3ML VIAL for OP,RR ONLY. SQ PRN (07:00)
[2019-08-05] MEDS ORDERED: FAMOTIDINE 20 MG/2 ML VIAL ONE (07:07)
[2019-08-05] MEDS ORDERED: ONDANSETRON PF 4 MG/2 ML VIAL. ONE (07:07)
[2019-08-05] MEDS ORDERED: LIDOCAINE 2% PF 5 ML VIAL. ONE (07:07)
[2019-08-05] MEDS ORDERED: DEXAMETHASONE SOD PHOS 4 MG/ML VIAL ONE (07:07)
[2019-08-05] MEDS ORDERED: PROPOFOL 20 ML IV ONE (07:07)
[2019-08-05] MEDS ORDERED: ROCURONIUM 100 MG/10 ML VIAL. ONE (07:08)
[2019-08-05] MEDS ORDERED: fentaNYL PF VIAL 100 MCG/2 ML VIAL ONE ×3 (07:08→08:30)
[2019-08-05] MEDS ORDERED: DEXAMETHASONE SOD PHOS 20 MG/5 ML VIAL. ONE (07:09)
[2019-08-05] MEDS ORDERED: SURGICEL FIBRILLAR 1X2 EACH. ONE ×2 (07:25→10:31)
[2019-08-05] MEDS ORDERED: IOHEXOL 300 MG/ML 50 ML VIAL. ONE (07:25)
[2019-08-05] MEDS ORDERED: THROMBIN TOPICAL 20,000 UNIT SPRAY.SYRN KIT TP ONE (07:25)
[2019-08-05] MEDS ORDERED: PAPAVERINE 60 MG/2 ML VIAL FOR OR ONLY. ONE (07:25)
[2019-08-05] MEDS ORDERED: GELATIN SPONGE SIZE 12-7MM SPONGE. ONE (07:25)
[2019-08-05] MEDS: IV RINGERS,LACTATED 1000ML 1,000 ML IV SCH ×2 (07:28→12:11)
[2019-08-05] MEDS ORDERED: oxyCODONE/APAP 5/325 1 TAB TABLET PO PRN (07:45)
[2019-08-05] MEDS ORDERED: MAG HYDROX/ALUMINUM HYD/SIMETH 30 ML ORAL.SUSP PO PRN (07:45)
[2019-08-05] MEDS ORDERED: NALOXONE 0.4 MG/ML VIAL. IV PRN (07:45)
[2019-08-05] MEDS ORDERED: CALCIUM CARBONATE 500 MG TAB.CHEW PO PRN (07:45)
[2019-08-05] MEDS ORDERED: 0.9 % SODIUM CHLORIDE 10 ML DISP.SYRIN. IV PRN (07:45)
[2019-08-05 08:00] LABS: CALCIUM 8.9 mg/dL (8.5-10.1); CREATININE 1.6 mg/dL (0.7-1.3); GFR 50.6; POTASSIUM 4.2 mmol/L (3.5-5.1)
[2019-08-05 08:01] LABS: BASO % 0 % (0-3); EOS # 0.2 x10^3/uL (0.0-0.7); EOS % 2 % (0-3); HEMATOCRIT 33.9 % (39.0-53.0); HEMOGLOBIN 10.8 g/dL (13.0-17.5); LYMPH % 12 % (24-48); MEAN CORPUSCULAR HEMOGLOBIN 23 pg (25-35); MEAN CORPUSCULAR HGB CONC 32 g/dL (31-37); MEAN CORPUSCULAR VOLUME 71 fL (79-100); MONO # 0.6 x10^3/uL (0.0-1.1); MONO % 8 % (0-9); NEUT # 6.3 x10^3/uL (1.8-7.7); NEUT % 78 % (31-73); PLATELET COUNT 207 x10^3/uL (140-400); RED CELL DISTRIBUTION WIDTH 16.3 % (11.5-14.5); WHITE BLOOD COUNT 8.1 x10^3/uL (4.0-11.0)
[2019-08-05] MEDS ORDERED: PHENYLEPHRINE 10 MG/ML VIAL. ONE (08:30)
[2019-08-05] MEDS ORDERED: NEOSTIGMINE METHYLSULFATE 5 MG/5 ML SYRINGE. ONE (09:55)
[2019-08-05] MEDS ORDERED: GLYCOPYRROLATE 1 MG/5 ML VIAL. ONE (09:55)
[2019-08-05 10:59] LABS: PLT ESTIMATE ADEQUATE (ADEQUATE)
[2019-08-05 11:00] LABS: ANISOCYTOSIS SLIGHT; HYPOCHROMIA PRESENT; MICROCYTOSIS MOD
[2019-08-05 11:01] LABS: OVALOCYTES FEW; SCHISTOCYTES OCC; TARGET CELLS FEW
--- NOTE | 2019-08-05 11:23 | PDOC4 ---
Operative Note Operative Note Operative Report Dictated Pre-op: Left leg peripheral artery disease with ischemic rest pain and toe ulcer Post-op: same Surgery: Left common femoral artery to posterior tibial bypass with left leg great saphenous vein (in situ) Surgeon: Dr. Clarke Denis Dye Reel Operator Helper: DR. Miguel Angel Malhotra Anesthesia: general Blood loss: 200ml CLARKE DENIS MD Aug 05, 2019 11:23
[2019-08-05] MEDS ORDERED: hydrALAZINE 20 MG/ML VIAL. ONE (11:51)
--- NOTE | 2019-08-05 11:57 | OP ---
DATE OF SURGERY: 08/05/2019 SURGEON: Shelia Denis M.D. BIOMEDICAL SPECIALIST: Miguel Angel Malhotra DO PREOPERATIVE DIAGNOSES: Left lower extremity severe peripheral arterial disease, symptomatic with ischemic rest pain and a toe ulcer on his left second toe, which is nonhealing. POSTOPERATIVE DIAGNOSES: Left lower extremity severe peripheral arterial disease, symptomatic with ischemic rest pain and a toe ulcer on his left second toe, which is nonhealing. OPERATION PERFORMED: 1. Left common femoral artery to posterior tibial artery bypass graft using in situ left great saphenous vein. 2. Left great saphenous vein was used in situ fashion and the valves were cut with a LeMaitre valvulotome. INDICATIONS: The patient is an 79-year-old male with severe left lower extremity peripheral arterial disease, symptomatic with ischemic rest pain, claudication and nonhealing ulcer on his left second toe. Preoperative CT angiogram and arteriogram showed complete occlusion of the left superficial femoral artery from the origin through the popliteal artery and severe disease of the trifurcation. He had a patent posterior tibial artery just distal to the tibioperoneal trunk that was patent to the foot. I recommend a left common femoral artery to posterior tibial artery bypass graft. Vein mapping showed borderline size left great saphenous vein and adequate size right arm cephalic vein. We planned the bypass with using the left great saphenous vein versus the right arm vein. Informed consent was obtained including the risks of bleeding, infection, bypass graft failure or need for revision in the future, difficulty healing wounds with open wounds requiring long-term dressing care and possible further surgical debridement or intervention. BLOOD LOSS: 200 mL. ANESTHESIA USED: General anesthesia. DETAILS OF THE OPERATION: The patient was brought to the operating room and placed on table in supine position. He received general anesthesia and monitored throughout the case by the anesthesiologist. Prior to starting the case, I used the ultrasound. I marked the left great saphenous vein throughout the length of the leg. It was patent and easily compressible throughout the leg. I also marked the location of the right arm cephalic vein and basilic vein if needed. The left lower abdomen, groin and left leg circumferentially were prepped and draped the right arm circumferentially and hand was prepped and draped by normal sterile fashion. We made a longitudinal incision through the left groin over the area of the femoral vessels. The subcutaneous tissue was dissected down with electrocautery. Crossing venous and lymphatic branches were clipped and divided. We continued dissection down to the femoral vessels. The common femoral artery was identified. It was dissected out proximally up to the inguinal ligament distally down to the profunda artery. It was very soft and a strong palpable pulse within the common femoral artery. The profunda artery was also soft. We placed a vessel loop around it and a vessel loop around the superficial femoral artery, which was chronically occluded and had no pulse. The great saphenous vein was identified medially within the wound. It was of good size at least 4-5 mm within the groin and easily compressible. I dissected up to the saphenofemoral junction, taking lateral branches with silk sutures, clips and dividing them. Distally within the groin wound, the saphenous vein remained a good size. We then made a longitudinal incision through the left medial calf, dissected out the great saphenous vein, which was a good size vein at this location at least 3 mm in diameter. We dissected out proximally and distally throughout the calf. We felt it would be best to use the great saphenous vein since it was adequate in size. We then in the medial calf dissected down to the fascia medially, we were able to identify the popliteal and tibial space. The posterior tibial artery was dissected out distally within the wound. It was soft with no occlusion at the distal calf location. We dissected out circumferentially and placed a vessel loop around it. We followed the great saphenous vein in the calf. We extended this incision across the knee and dissected out the great saphenous vein. There was a large branch, which was ligated with silk sutures and divided. We heparinized with 8000 units of heparin. After 3 minutes, we ligated the distal great saphenous vein at the distal calf with silk sutures and clipped and we transected the vein. We ran the LeMaitre valvulotome in a closed fashion up the vein and confirmed that we had a correct vein extending from the calf all the way up to the groin, easily advanced without resistance. After doing so, we then clamped the proximal common femoral artery, the distal superficial femoral and profunda artery. We made a longitudinal arteriotomy in the distal common femoral artery just over the profunda artery. The lumen was widely patent with no significant disease. We then clamped the saphenofemoral junction. We transected the great saphenous vein distal to this and we oversewed the saphenofemoral junction stump with two layers of 5-0 Prolene suture. We mobilized the great saphenous vein over to the area of the common femoral artery. We spatulated the end of the vein to size and then we performed an end-to-side anastomosis with running 6-0 Prolene suture. After finishing this anastomosis, we restored blood flow. There was pulsatile blood flow in the proximal vein and the profunda artery. We then used the EncrypTixaialonzo valvulotome and we cut the valves throughout the length of the great saphenous vein. There was pulsatile bleeding from the end of the vein, but it was slightly sluggish. We used the ultrasound evaluated the vein and there was one more large side branch just in the distal thigh. Therefore, we dissected this area out. We ligated this large side branch with silk sutures, clips and divided it, after which time there was pulsatile blood flow through the end of the vein. We ran the valvulotome again to ensure there were no further valves within the lumen and we irrigated it with heparinized saline and clamped it. The proximal and distal posterior tibial artery was clamped with spring bulldog. A longitudinal arteriotomy was made in the anterior wall of the artery. The vein was brought to the area of the artery and cut to length. We spatulated the end and performed an end-to-side anastomosis between the posterior tibial artery and the saphenous vein with running 7-0 Prolene suture. Prior to finishing this, we removed the clamps off the distal posterior tibial artery and there was good backbleeding. There was pulsatile inflow from the vein conduit. We reclamped. We finished our anastomosis and restored blood flow. There was strong dopplerable flow in the distal posterior tibial artery in the wound and at the ankle level, which was graft dependent. We then irrigated all wounds with copious amounts of antibiotic solution. Hemostasis was gained with electrocautery and clips. We then placed Fibrillar over all anastomoses. The groin incision was closed with 3 layers of 2-0 Vicryl suture in subcutaneous tissue layer and 4-0 subcuticular suture in the skin level. The calf and distal thigh incision was closed with 2 layers of running 2-0 Vicryl suture in the subcutaneous tissue level and 4-0 Vicryl in the skin level. A Prevena VAC dressing was left on the entire length of the leg and sealed the suction. He tolerated the surgery well with no immediate complications. SHELIA DENIS MD DR: KEVIN/jc JOB#: [id number] / [id number]
[2019-08-05] MEDS: hydrALAZINE 20 MG/ML VIAL. IVP PRN ×2 (12:09→12:41)
[2019-08-05] MEDS: fentaNYL PF VIAL 100 MCG/2 ML VIAL IV PRN ×2 (12:10→12:42)
[2019-08-05] MEDS: IV NORMAL SALINE 1000ML BAG 1,000 ML IV SCH ×3 (12:42→22:41)
[2019-08-05] MEDS ORDERED: CLOPIDOGREL BISULFATE 75 MG TABLET PO ONE (13:00)
--- NOTE | 2019-08-05 13:45 | NUR ---
Wound Care Received consult for L foot wounds from Dr. Denis. Pt has not been placed into a room yet, will f/u with pt tomorrow, once settled.
[2019-08-05] MEDS: oxyCODONE/APAP 5/325 1 TAB TABLET PO PRN (14:21)
--- NOTE | 2019-08-05 14:40 | HP ---
ADMIT DATE: 08/05/2019 CHIEF COMPLAINT: Postop left femoral toe, [id number] popliteal bypass with left foot wound debridement. HISTORY OF PRESENT ILLNESS: The patient is a pleasant elderly male who had the above procedure done by Dr. Denis this morning, they called from the postoperative area and asked that we help admit the patient and get some wound care and physical therapy. The patient is currently being examined in room 254. PAST MEDICAL HISTORY: Atherosclerosis, prostate cancer, hypertension, hyperlipidemia. ALLERGIES: None. FAMILY HISTORY: Hypertension. 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 He builds [employer] currently as a hobby. He is to Stephanie, they have been for a long time. She seems to be good support for him. He does not drink, smoke or take drugs. MEDICATIONS: Reviewed, please refer to the [facility]. REVIEW OF SYSTEMS: GENERAL: No history of weight change, weakness or fevers. SKIN: No bruising, hair changes or rashes. EYES: No blurred, double or loss of vision. NOSE AND THROAT: No history of nosebleeds, hoarseness or sore throat. HEART: No history of palpitations, chest pain or shortness of breath on exertion. LUNGS: Denies cough, hemoptysis, wheezing or shortness of breath. GASTROINTESTINAL: Denies changes in appetite, nausea, vomiting, diarrhea or constipation. GENITOURINARY: No history of frequency, urgency, hesitancy or nocturia. NEUROLOGIC: Denies history of numbness, tingling, tremor or weakness. PSYCHIATRIC: No history of panic, anxiety or depression. ENDOCRINE: No history of heat or cold intolerance, polyuria or polydipsia. EXTREMITIES: Denies muscle weakness, joint pain, pain on walking or stiffness. PHYSICAL EXAMINATION: VITALS: Within normal limits and are stable. GENERAL: No apparent distress. Alert and oriented. HEENT: Head is normocephalic, atraumatic, pupils were equally round and reactive to light and accommodation. NECK: Supple, no JVD, no thyromegaly was noted. LUNGS: Clear to auscultation in all lung dyson without rhonchi or wheezing. HEART: RRR, S1, S2 present. Peripheral pulses intact, no obvious murmurs were noted. ABDOMEN: Soft, nontender. Positive bowel sounds no organomegaly, normal bowel sounds. EXTREMITIES: He has clean, dry and intact dressing with on the left leg with a boot with a boot in place.. NEUROLOGIC: Normal speech, normal tone. A & O x3, moves all extremities, no obvious focal deficits. PSYCHIATRIC: Normal affect, normal mood. Stable. SKIN: No ulcerations or rashes, good skin turgor, no jaundice. VASCULAR: Good capillary refill, neurovascular bundle appears to be intact. HEENT: sounds. LABORATORY DATA: White count 8, hemoglobin 10.8, platelets 207. Electrolytes are normal other than a creatinine of 1.6. ASSESSMENT AND PLAN: Postop left lower extremity vascular bypass. The patient has been admitted. We are doing aggressive wound care, physical therapy and occupational therapy. Consult Vascular Surgery, consult Nephrology for the chronic renal insufficiency, trend his hemoglobin and other labs; PT, OT, wound care. Prognosis is guarded. Suspect he may need to go to long term after this. DUC GRANT DO DR: IVAN/jc JOB#: [id number] / [id number]
--- NOTE | 2019-08-05 15:00 | NUR ---
Patient arrived from PACU via bed, Left surgical incision with wound vac in place, able to doppler left posterior Tibial pulse, extremity is warm. Patient complaints of minimal pain. Vitals stable, Will continue to monitor.
[2019-08-05] MEDS ORDERED: IBUPROFEN 200 MG TABLET. PO PRN (19:15)
[2019-08-05] MEDS ORDERED: ALPRAZolam 0.5 MG TABLET PO PRN (19:15)
[2019-08-05] MEDS ORDERED: DEXTROSE 50% 25 GM / 50ML DISP.SYRIN. IV PRN (19:15)
[2019-08-05] MEDS: NIACIN ER 500 MG TABLET.ER PO SCH (20:44)
[2019-08-05] MEDS: ATORVASTATIN CALCIUM 10 MG TABLET. PO SCH (20:44)
[2019-08-06 02:25] VITALS: BP 144/53
[2019-08-06 07:00] VITALS: BP 146/64
[2019-08-06] MEDS ORDERED: ASPIRIN ENTERIC COATED 325 MG TABLET.DR. PO SCH (08:00)
[2019-08-06] MEDS: ALLOPURINOL 300 MG TABLET. PO SCH (09:00)
--- NOTE | 2019-08-06 09:10 | PDOC ---
Provider Note Provider Note Vascular S: Patient seen and examined in room. Complained of pain with indwelling catheter last pm, resolved this am. Denies any incisional pain. VS P 110, afebrile Non-labored respirations Abdomen soft, NTND Left leg with Prevena along entire incision attached to hospital vac, functioning, minimal drainage in canister. Left DP and PT Doppler signal, moderate lower extremity swelling. A/P: Left lower extremity severe peripheral arterial disease, symptomatic with ischemic rest pain and a toe ulcer on his left second toe, which is nonhealing. POD #1 1. Left common femoral artery to posterior tibial artery bypass graft using in situ left great saphenous vein. 2. Left great saphenous vein was used in situ fashion and the valves were cut with a LeMaitre valvulotome. Doing well, Am Labs not yet available. Up in chair and ad melissa today. Discontinue indwelling catheter. Saline lock IV. Discharge planning. SUSANA DOAN APRN Aug 06, 2019 09:10
[2019-08-06] MEDS ORDERED: 0.9 % SODIUM CHLORIDE 10 ML DISP.SYRIN. IV PRN (09:15)
[2019-08-06] MEDS: hydroCHLOROthiazide 25 MG TABLET PO SCH (09:41)
[2019-08-06] MEDS: CLOPIDOGREL BISULFATE 75 MG TABLET PO SCH (09:41)
[2019-08-06] MEDS: oxyCODONE/APAP 5/325 1 TAB TABLET PO PRN (09:43)
[2019-08-06] MEDS: ASPIRIN ENTERIC COATED 81 MG TABLET.DR. PO SCH (09:44)
[2019-08-06] MEDS: LISINOPRIL 20 MG TABLET PO SCH (09:44)
--- NOTE | 2019-08-06 09:52 | PDOC2 ---
CONSULT Date of Consult Date of Consult DATE: 08/06/19 TIME: 09:49 Reason for Consult Reason for Consult: Chronic kidney disease Referring Physician Referring Physician: Daisy Identification/Chief Complaint Chief Complaint Peripheral vascular disease, status post bypass surgery Source Source: Chart review, Patient History of Present Illness Reason for Visit: Mr. Aguilar is a pleasant 79-year-old Afro[place] gentleman followed by Dr. Khan in our practice. He is known to have chronic renal insufficiency and follows up very much on an annual basis. He developed significant symptomatic peripheral vascular disease with ischemic rest pain and a toe ulcer on his left second toe, which was nonhealing. He hence underwent Left common femoral artery to posterior tibial artery bypass graft using in-situ left great saphenous vein yesterday and is now admitted to the telemetry floor for further monitoring. We were asked to see him for his history of chronic renal insufficiency. His baseline creatinine seems to run about 1.5- 1.6 which is where he is running c urrently. He did have a Goode catheter in place which is just been removed. He claims he takes flow-EZ at home and goes well. Patient underwent bilateral aortic/ femoral CTA in May 2019 which showed "Symmetric nephrograms. No focal renal lesion. No hydronephrosis. No hydroureter. Bladder is unremarkable." - From the renal standpoint besides other (chronic vascular findings as noted on the report. No comment on renal artery stenosis is been noted Past Medical History Past Medical History Coronary artery disease Hypertension Dyslipidemia Peripheral vascular disease status post left lower extremity bypass Ventral hernia repair History of prostate cancer Chronic kidney disease stage III Diabetes Anxiety Previous history of tobaccoism Osteoarthritis Cardiovascular: CAD, HTN, Hyperlipidemia Renal/: Chronic renal insuff Past Surgical History Past Surgical History: Hernia Repair Family History Family History Noncontributory due to advanced age Social History Quit ALCOHOL: none Drugs: None Lives: with Family Current Medications Current Medications Current Medications Heparin Sodium (Porcine) 5000 unit/Sodium Chloride 505 ml @ 505 mls/hr 1X ONCE IRR Last administered on 08/05/19at 08:29; Start 08/05/19 at 06:00; Stop 08/05/19 at 06:59; Status DC Cefazolin Sodium 1 gm/Sodium Chloride 500 ml @ 500 mls/hr 1X ONCE IRR Last administered on 08/05/19at 08:29; Start 08/05/19 at 06:00; Stop 08/05/19 at 06:59; Status DC Ondansetron HCl (Zofran) 4 mg PRN Q6HRS PRN IV NAUSEA/VOMITING; Start 08/05/19 at 07:00; Stop 08/06/19 at 06:59; Status DC Fentanyl Citrate (Fentanyl 2ml Vial) 25 mcg PRN Q5MIN PRN IV MILD PAIN 1-3; Start 08/05/19 at 07:00; Stop 08/06/19 at 06:59; Status DC Fentanyl Citrate (Fentanyl 2ml Vial) 50 mcg PRN Q5MIN PRN IV MODERATE TO SEVERE PAIN Last administered on 08/05/19at 12:42; Start 08/05/19 at 07:00; Stop 08/06/19 at 06:59; Status DC Morphine Sulfate (Morphine Sulfate) 1 mg PRN Q10MIN PRN IV SEVERE PAIN 7-10; Start 08/05/19 at 07:00; Stop 08/06/19 at 06:59; Status DC Ringer's Solution 1,000 ml @ 30 mls/hr Q24H IV Last administered on 08/05/19at 12:11; Start 08/05/19 at 07:00; Stop 08/05/19 at 18:59; Status DC Hydromorphone HCl (Dilaudid) 0.5 mg PRN Q10MIN PRN IV SEV PAIN, Second choice; Start 08/05/19 at 07:00; Stop 08/06/19 at 06:59; Status DC Prochlorperazine Edisylate (Compazine) 5 mg PACU PRN PRN IV NAUSEA, MRX1 Last administered on 08/05/19at 12:07; Start 08/05/19 at 07:00; Stop 08/06/19 at 06:59; Status DC Cefazolin Sodium/ Dextrose 50 ml @ 100 mls/hr 1X PREOP PRN IV PRIOR TO PROCEDURE Last administered on 08/05/19at 07:45; Start 08/05/19 at 06:00; Stop 08/05/19 at 18:00; Status DC Insulin Human Lispro (HumaLOG VIAL for OP,RR ONLY) 0-10 units PRN Q1HR PRN SQ PER PROTOCOL; Start 08/05/19 at 07:00; Stop 08/06/19 at 06:59; Status DC Lidocaine HCl (Lidocaine Pf 2% Vial) 5 ml STK-MED ONCE .ROUTE ; Start 08/05/19 at 07:07; Stop 08/05/19 at 07:08; Status DC Propofol 20 ml @ As Directed STK-MED ONCE IV ; Start 08/05/19 at 07:07; Stop 08/05/19 at 07:08; Status DC Famotidine (Pepcid Vial) 20 mg STK-MED ONCE .ROUTE ; Start 08/05/19 at 07:07; Stop 08/05/19 at 07:08; Status DC Ondansetron HCl (Zofran) 4 mg STK-MED ONCE .ROUTE ; Start 08/05/19 at 07:07; Stop 08/05/19 at 07:08; Status DC Dexamethasone Sodium Phosphate (Decadron) 4 mg STK-MED ONCE .ROUTE ; Start 08/05/19 at 07:07; Stop 08/05/19 at 07:08; Status DC Rocuronium Crouse (Zemuron) 100 mg STK-MED ONCE .ROUTE ; Start 08/05/19 at 07:08; Stop 08/05/19 at 07:08; Status DC Fentanyl Citrate (Fentanyl 2ml Vial) 100 mcg STK-MED ONCE .ROUTE ; Start 08/05/19 at 07:08; Stop 08/05/19 at 07:08; Status DC Dexamethasone Sodium Phosphate (Decadron) 20 mg STK-MED ONCE .ROUTE ; Start 08/05/19 at 07:09; Stop 08/05/19 at 07:09; Status DC Gelatin (Gelfoam Size 12-7mm) 1 each STK-MED ONCE .ROUTE ; Start 08/05/19 at 07:25; Stop 08/05/19 at 07:25; Status DC Iohexol (Omnipaque 300 Mg/ml) 50 ml STK-MED ONCE .ROUTE ; Start 08/05/19 at 07:25; Stop 08/05/19 at 07:25; Status DC Cellulose (Surgicel Fibrillar 1x2) 1 each STK-MED ONCE .ROUTE Last administered on 08/05/19at 10:12; Start 08/05/19 at 07:25; Stop 08/05/19 at 07:25; Status DC Papaverine HCl 60 mg STK-MED ONCE .ROUTE ; Start 08/05/19 at 07:25; Stop 08/05/19 at 07:25; Status DC Thrombin 20,000 unit STK-MED ONCE TP ; Start 08/05/19 at 07:25; Stop 08/05/19 at 07:25; Status DC Aspirin (Ecotrin) 325 mg DAILYWBKFT PO ; Start 08/06/19 at 08:00; Stop 08/05/19 at 19:13; Status DC Clopidogrel Bisulfate (Plavix) 75 mg DAILYWBKFT PO ; Start 08/06/19 at 08:00 Al Hydroxide/Mg Hydroxide (Mylanta Plus Xs) 30 ml PRN Q3HRS PRN PO HEARTBURN / GAS; Start 08/05/19 at 07:45 Calcium Carbonate/ Glycine (Tums) 500 mg PRN Q3HRS PRN PO INDIGESTION; Start 08/05/19 at 07:45 Naloxone HCl (Narcan) 0.1 mg PRN Q2MIN PRN IV ADMIN; Start 08/05/19 at 07:45 Sodium Chloride (Normal Saline Flush) 3 ml QSHIFT PRN IV AFTER MEDS AND BLOOD DRAWS; Start 08/05/19 at 07:45 Sodium Chloride 1,000 ml @ 125 mls/hr Q8H IV Last administered on 08/05/19at 22:41; Start 08/05/19 at 07:35; Stop 08/06/19 at 09:15; Status DC Oxycodone/ Acetaminophen (Percocet 5/325) 1 tab PRN Q4HRS PRN PO MILD PAIN, 1ST CHOICE Last administered on 08/05/19at 14:21; Start 08/05/19 at 07:45 Oxycodone/ Acetaminophen (Percocet 5/325) 2 tab PRN Q4HRS PRN PO MODERATE PAIN, SEVERE PAIN; Start 08/05/19 at 07:45 Morphine Sulfate (Morphine Sulfate) 2 mg PRN Q1HR PRN IV PAIN; Start 08/05/19 at 07:45 Ondansetron HCl (Zofran) 4 mg PRN Q6HRS PRN IV NAUESA, 1ST CHOICE; Start 08/05/19 at 07:45 Cefazolin Sodium/ Dextrose 50 ml @ 100 mls/hr Q6H IV Last administered on 08/06/19at 02:00; Start 08/05/19 at 14:00; Stop 08/06/19 at 02:29; Status DC Fentanyl Citrate (Fentanyl 2ml Vial) 100 mcg STK-MED ONCE .ROUTE ; Start 08/05/19 at 08:03; Stop 08/05/19 at 08:03; Status DC Phenylephrine HCl ([place]-Synephrine Inj) 10 mg STK-MED ONCE .ROUTE ; Start 08/05/19 at 08:30; Stop 08/05/19 at 08:30; Status DC Fentanyl Citrate (Fentanyl 2ml Vial) 100 mcg STK-MED ONCE .ROUTE ; Start 08/05/19 at 08:30; Stop 08/05/19 at 08:31; Status DC Neostigmine Methylsulfate (Neostigmine Methylsulfate) 5 mg STK-MED ONCE .ROUTE ; Start 08/05/19 at 09:55; Stop 08/05/19 at 09:55; Status DC Glycopyrrolate (Robinul) 1 mg STK-MED ONCE .ROUTE ; Start 08/05/19 at 09:55; Stop 08/05/19 at 09:55; Status DC Cellulose (Surgicel Fibrillar 1x2) 1 each STK-MED ONCE .ROUTE Last administered on 08/05/19at 10:33; Start 08/05/19 at 10:31; Stop 08/05/19 at 10:32; Status DC Hydralazine HCl (Apresoline Inj) 20 mg STK-MED ONCE .ROUTE ; Start 08/05/19 at 11:51; Stop 08/05/19 at 11:52; Status DC Hydralazine HCl (Apresoline Inj) 10 mg PRN Q10MIN PRN IVP HYPERTENSION Last administered on 08/05/19at 12:41; Start 08/05/19 at 12:00 Clopidogrel Bisulfate (Plavix) 75 mg 1X ONCE PO Last administered on 08/05/19at 15:40; Start 08/05/19 at 13:00; Stop 08/05/19 at 13:01; Status DC Allopurinol (Zyloprim) 300 mg DAILY PO ; Start 08/06/19 at 09:00 Alprazolam (Xanax) 0.5 mg PRN BID PRN PO ANXIETY / AGITATION; Start 08/05/19 at 19:15 Aspirin (Ecotrin) 81 mg DAILY PO ; Start 08/06/19 at 09:00 Niacin (Slo-Niacin) 500 mg QHS PO Last administered on 08/05/19at 20:44; Start 08/05/19 at 21:00 Tamsulosin HCl (Flomax) 0.4 mg DAILYWSUP PO ; Start 08/06/19 at 17:00 Ibuprofen (Motrin) 600 mg PRN Q8HRS PRN PO INFLAMMATION; Start 08/05/19 at 19:15 Lisinopril (Prinivil) 20 mg DAILY PO ; Start 08/06/19 at 09:00 Atorvastatin Calcium (Lipitor) 5 mg QHS PO Last administered on 08/05/19at 20:44; Start 08/05/19 at 21:00 Dextrose (Dextrose 50%-Water Syringe) 12.5 gm PRN Q15MIN PRN IV SEE COMMENTS; Start 08/05/19 at 19:15 Hydrochlorothiazide (Hydrodiuril) 25 mg DAILY PO ; Start 08/06/19 at 09:00 Sodium Chloride (Normal Saline Flush) 3 ml QSHIFT PRN IV AFTER MEDS AND BLOOD DRAWS; Start 08/06/19 at 09:15; Status Cancel Metoprolol Tartrate (Lopressor) 12.5 mg BID PO ; Start 08/06/19 at 21:00 Metoprolol Tartrate (Lopressor) 12.5 mg 1X ONCE PO ; Start 08/06/19 at 10:00; Stop 08/06/19 at 10:01 Active Scripts Active Ibuprofen 600 Mg Tablet 600 Mg PO PRN Q8HRS PRN 5 Days Aspirin Ec (Aspirin) 81 Mg Tablet.dr 1 Tab PO DAILY Reported Niaspan (Niacin) 500 Mg Tab.er.24h 1 Tab PO QHS B-6 (Pyridoxine HCl (Vitamin B6)) 200 Mg Tablet.er 100 Mg PO DAILY Tamsulosin Hcl 0.4 Mg Cap.er.24h 1 Cap PO DAILYWSUP Allopurinol 300 Mg Tablet 1 Tab PO DAILY Lisinopril-Hctz 20-25 Mg Tab (Lisinopril/Hydrochlorothiazide) 1 Each Tablet 1 Tab PO DAILY Lovastatin 20 Mg Tablet 20 Mg PO BID Alprazolam 0.5 Mg Tablet 0.5 Mg PO PRN PRN Allergies Allergies: Coded Allergies: No Known Drug Allergies (Unverified , 08/05/19) ROS Review of System 14 point review of systems was conducted with the patient is grossly negative other than mentioned under history of present illness. Positive postsurgical pain Physical Exam Physical Exam General Appearance: Awake Alert Oriented x 3 In no Distress Eyes: VIsion Unchanged Conjunctiva Normal EN: No EN Drainage Mucous Memb. moist Neck: no JVD no JVP Supple no Thyromegaly CVS: S1 S2 soft Murmur No Gallop No Rub no Edema Resp: no Rales no Rhonchi no Acc. 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 Postoperatively his creatinine has remained stable with good urine output as documented. We will watch urine output after Goode catheter removal Anemia: Microcytic in nature. Check iron profile HTN: Current BP meds reviewed. Blood pressure is well controlled currently, minimal tachycardia is noted. Peripheral vascular disease status post bypass surgery, with nonhealing wound. Defer to vascular surgery Discussed Plan of Care and prognosis etc. at length with family () at bedside Labs Labs Laboratory Tests Test 08/05/19 07:20 08/05/19 16:31 08/05/19 20:57 08/06/19 08:18 White Blood Count 8.1 x10^3/uL (4.0-11.0) Red Blood Count 4.80 x10^6/uL (4.30-5.70) Hemoglobin 10.8 g/dL (13.0-17.5) Hematocrit 33.9 % (39.0-53.0) Mean Corpuscular Volume 71 fL (79-100) Mean Corpuscular Hemoglobin 23 pg (25-35) Mean Corpuscular Hemoglobin Concent 32 g/dL (31-37) Red Cell Distribution Width 16.3 % (11.5-14.5) Platelet Count 207 x10^3/uL (140-400) Neutrophils (%) (Auto) 78 % (31-73) Lymphocytes (%) (Auto) 12 % (24-48) Monocytes (%) (Auto) 8 % (0-9) Eosinophils (%) (Auto) 2 % (0-3) Basophils (%) (Auto) 0 % (0-3) Neutrophils # (Auto) 6.3 x10^3/uL (1.8-7.7) Lymphocytes # (Auto) 1.0 x10^3/uL (1.0-4.8) Monocytes # (Auto) 0.6 x10^3/uL (0.0-1.1) Eosinophils # (Auto) 0.2 x10^3/uL (0.0-0.7) Basophils # (Auto) 0.0 x10^3/uL (0.0-0.2) Platelet Estimate Adequate (ADEQUATE) Hypochromasia Present Anisocytosis Slight Microcytosis Mod Target Cells Few Ovalocytes Few Schistocytes Occ Sodium Level 141 mmol/L (136-145) Potassium Level 4.2 mmol/L (3.5-5.1) Chloride Level 105 mmol/L (98-107) Carbon Dioxide Level 26 mmol/L (21-32) Anion Gap 10 (6-14) Blood Urea Nitrogen 26 mg/dL (8-26) Creatinine 1.6 mg/dL (0.7-1.3) Estimated GFR (Cockcroft-Gault) 50.6 Glucose Level 118 mg/dL (70-99) Calcium Level 8.9 mg/dL (8.5-10.1) Glucose (Fingerstick) 164 mg/dL (70-99) 118 mg/dL (70-99) 100 mg/dL (70-99) Laboratory Tests Test 08/05/19 16:31 08/05/19 20:57 08/06/19 08:18 Glucose (Fingerstick) 164 mg/dL (70-99) 118 mg/dL (70-99) 100 mg/dL (70-99) Review All relevant outside records, renal labs, imaging studies, telemetry/EKG's were reviewed. SOPHIA VERGARA MD Aug 06, 2019 09:52
[2019-08-06] MEDS ORDERED: METOPROLOL TART IMMED RELEASE 25 MG TABLET. PO ONE (10:00)
[2019-08-06 10:42] LABS: BASO % 0 % (0-3); EOS % 0 % (0-3); HEMATOCRIT 26.7 % (39.0-53.0); HEMOGLOBIN 8.5 g/dL (13.0-17.5); LYMPH # 1.1 x10^3/uL (1.0-4.8); LYMPH % 11 % (24-48); MEAN CORPUSCULAR HEMOGLOBIN 22 pg (25-35); MEAN CORPUSCULAR HGB CONC 32 g/dL (31-37); MEAN CORPUSCULAR VOLUME 70 fL (79-100); MONO # 0.8 x10^3/uL (0.0-1.1); MONO % 8 % (0-9); NEUT % 81 % (31-73); PLATELET COUNT 199 x10^3/uL (140-400); RED BLOOD COUNT 3.81 x10^6/uL (4.30-5.70); RED CELL DISTRIBUTION WIDTH 15.8 % (11.5-14.5); WHITE BLOOD COUNT 9.9 x10^3/uL (4.0-11.0)
[2019-08-06 10:47] LABS: CALCIUM 8.2 mg/dL (8.5-10.1); CREATININE 1.7 mg/dL (0.7-1.3); GFR 47.2; MAGNESIUM 1.6 mg/dL (1.8-2.4); PHOSPHORUS 2.7 mg/dL (2.6-4.7); POTASSIUM 3.9 mmol/L (3.5-5.1)
[2019-08-06 11:10] VITALS: BP 148/64
--- NOTE | 2019-08-06 12:05 | PDOC ---
[facility] PROGRESS NOTE Vitals/I&O Vitals/I&O: Vital Signs Date Time Temp Pulse Resp B/P (MAP) Pulse Ox O2 Delivery O2 Flow Rate FiO2 08/06/19 11:10 98.2 105 18 148/64 (92) 97 Room Air 98.2 08/05/19 12:14 10 I & O 08/05/19 08/05/19 08/06/19 15:00 23:00 07:00 Intake Total 4170 ml 360 ml Output Total 1100 ml 200 ml 650 ml Balance 3070 ml 160 ml -650 ml Labs Labs: Laboratory Tests Test 08/05/19 16:31 08/05/19 20:57 08/06/19 08:18 08/06/19 10:20 Glucose (Fingerstick) 164 mg/dL (70-99) 118 mg/dL (70-99) 100 mg/dL (70-99) White Blood Count 9.9 x10^3/uL (4.0-11.0) Red Blood Count 3.81 x10^6/uL (4.30-5.70) Hemoglobin 8.5 g/dL (13.0-17.5) Hematocrit 26.7 % (39.0-53.0) Mean Corpuscular Volume 70 fL (79-100) Mean Corpuscular Hemoglobin 22 pg (25-35) Mean Corpuscular Hemoglobin Concent 32 g/dL (31-37) Red Cell Distribution Width 15.8 % (11.5-14.5) Platelet Count 199 x10^3/uL (140-400) Neutrophils (%) (Auto) 81 % (31-73) Lymphocytes (%) (Auto) 11 % (24-48) Monocytes (%) (Auto) 8 % (0-9) Eosinophils (%) (Auto) 0 % (0-3) Basophils (%) (Auto) 0 % (0-3) Neutrophils # (Auto) 8.0 x10^3/uL (1.8-7.7) Lymphocytes # (Auto) 1.1 x10^3/uL (1.0-4.8) Monocytes # (Auto) 0.8 x10^3/uL (0.0-1.1) Eosinophils # (Auto) 0.0 x10^3/uL (0.0-0.7) Basophils # (Auto) 0.0 x10^3/uL (0.0-0.2) Sodium Level 139 mmol/L (136-145) Potassium Level 3.9 mmol/L (3.5-5.1) Chloride Level 105 mmol/L (98-107) Carbon Dioxide Level 25 mmol/L (21-32) Anion Gap 9 (6-14) Blood Urea Nitrogen 26 mg/dL (8-26) Creatinine 1.7 mg/dL (0.7-1.3) Estimated GFR (Cockcroft-Gault) 47.2 Glucose Level 118 mg/dL (70-99) Calcium Level 8.2 mg/dL (8.5-10.1) Phosphorus Level 2.7 mg/dL (2.6-4.7) Magnesium Level 1.6 mg/dL (1.8-2.4) Iron Level 21 ug/dL (65-175) Total Iron Binding Capacity 192 ug/dL (250-450) Iron Saturation 11 % (15-34) Ferritin 309 ng/mL (26-388) Test 08/06/19 11:43 Glucose (Fingerstick) 101 mg/dL (70-99) Comment Review of Relevant I have reviewed the following items mayela (where applicable) has been applied. Medications: Current Medications Medications (Trade) Dose Ordered Sig/Jovany Route PRN Reason Start Time Stop Time Status Last Admin Dose Admin Clopidogrel Bisulfate (Plavix) 75 mg DAILYWBKFT PO 08/06/19 08:00 08/06/19 09:41 Cefazolin Sodium/ Dextrose 50 ml @ 100 mls/hr Q6H IV 08/05/19 14:00 08/06/19 02:29 DC 08/06/19 02:00 Clopidogrel Bisulfate (Plavix) 75 mg 1X ONCE PO 08/05/19 13:00 08/05/19 13:01 DC 08/05/19 15:40 Allopurinol (Zyloprim) 300 mg DAILY PO 08/06/19 09:00 08/06/19 09:00 Aspirin (Ecotrin) 81 mg DAILY PO 08/06/19 09:00 08/06/19 09:44 Niacin (Slo-Niacin) 500 mg QHS PO 08/05/19 21:00 08/05/19 20:44 Lisinopril (Prinivil) 20 mg DAILY PO 08/06/19 09:00 08/06/19 09:44 Atorvastatin Calcium (Lipitor) 5 mg QHS PO 08/05/19 21:00 08/05/19 20:44 Hydrochlorothiazide (Hydrodiuril) 25 mg DAILY PO 08/06/19 09:00 08/06/19 09:41 DUC GRANT III DO Aug 06, 2019 12:05
--- NOTE | 2019-08-06 12:18 | PDOC ---
[facility] [facility] PROGRESS NOTE Chief Complaint Chief Complaint Postop left lower extremity vascular bypass Chronic kidney disease stage III Anemia: Microcytic in nature HTNLeft lower extremity severe peripheral arterial disease, symptomatic with ischemic rest pain and a toe ulcer on his left second toe, which is nonhealing. POD #1 History of Present Illness History of Present Illness 08/06/2019 POD#1 Pt was seen and examined. Was resting comfortably on exam with no acute complaints. Vitals/I&O Vitals/I&O: Vital Signs Date Time Temp Pulse Resp B/P (MAP) Pulse Ox O2 Delivery O2 Flow Rate FiO2 08/06/19 11:10 98.2 105 18 148/64 (92) 97 Room Air 98.2 08/05/19 12:14 10 I & O 08/05/19 08/05/19 08/06/19 15:00 23:00 07:00 Intake Total 4170 ml 360 ml Output Total 1100 ml 200 ml 650 ml Balance 3070 ml 160 ml -650 ml Physical Exam General: Alert, Oriented X3, Cooperative Heart: Regular rate, Normal S1, Normal S2 Lungs: Clear, Wheezing Abdomen: Normal bowel sounds, Soft Extremities: No clubbing, No cyanosis, No edema Skin: No rashes, No breakdown, Other (Left low extremity with clean dry and intact dressing with wound vac in place) Labs Labs: Laboratory Tests Test 08/05/19 16:31 08/05/19 20:57 08/06/19 08:18 08/06/19 10:20 Glucose (Fingerstick) 164 mg/dL (70-99) 118 mg/dL (70-99) 100 mg/dL (70-99) White Blood Count 9.9 x10^3/uL (4.0-11.0) Red Blood Count 3.81 x10^6/uL (4.30-5.70) Hemoglobin 8.5 g/dL (13.0-17.5) Hematocrit 26.7 % (39.0-53.0) Mean Corpuscular Volume 70 fL (79-100) Mean Corpuscular Hemoglobin 22 pg (25-35) Mean Corpuscular Hemoglobin Concent 32 g/dL (31-37) Red Cell Distribution Width 15.8 % (11.5-14.5) Platelet Count 199 x10^3/uL (140-400) Neutrophils (%) (Auto) 81 % (31-73) Lymphocytes (%) (Auto) 11 % (24-48) Monocytes (%) (Auto) 8 % (0-9) Eosinophils (%) (Auto) 0 % (0-3) Basophils (%) (Auto) 0 % (0-3) Neutrophils # (Auto) 8.0 x10^3/uL (1.8-7.7) Lymphocytes # (Auto) 1.1 x10^3/uL (1.0-4.8) Monocytes # (Auto) 0.8 x10^3/uL (0.0-1.1) Eosinophils # (Auto) 0.0 x10^3/uL (0.0-0.7) Basophils # (Auto) 0.0 x10^3/uL (0.0-0.2) Sodium Level 139 mmol/L (136-145) Potassium Level 3.9 mmol/L (3.5-5.1) Chloride Level 105 mmol/L (98-107) Carbon Dioxide Level 25 mmol/L (21-32) Anion Gap 9 (6-14) Blood Urea Nitrogen 26 mg/dL (8-26) Creatinine 1.7 mg/dL (0.7-1.3) Estimated GFR (Cockcroft-Gault) 47.2 Glucose Level 118 mg/dL (70-99) Calcium Level 8.2 mg/dL (8.5-10.1) Phosphorus Level 2.7 mg/dL (2.6-4.7) Magnesium Level 1.6 mg/dL (1.8-2.4) Iron Level 21 ug/dL (65-175) Total Iron Binding Capacity 192 ug/dL (250-450) Iron Saturation 11 % (15-34) Ferritin 309 ng/mL (26-388) Test 08/06/19 11:43 Glucose (Fingerstick) 101 mg/dL (70-99) Review of Systems Review of Systems: Denies N/V/D Denies CP Denies SOB Assessment and Plan Assessmemt and Plan Postop left lower extremity vascular bypass Chronic kidney disease stage III Anemia: Microcytic in nature HTN Left lower extremity severe peripheral arterialdisease, symptomatic with ischemic rest pain and a toe ulcer on his left second toe, which is nonhealing. Sustained tachycardia POD #1 Plan: 1) Wound Care 2) Started pt on metoprolol 12.5mg bid for sustained tachycardia 3) cardiac monitoring 4) Daily labs 5) DVT prophylaxis 6) SNU evaluation in progress Comment Review of Relevant I have reviewed the following items mayela (where applicable) has been applied. Medications: Current Medications Medications (Trade) Dose Ordered Sig/Jovany Route PRN Reason Start Time Stop Time Status Last Admin Dose Admin Clopidogrel Bisulfate (Plavix) 75 mg DAILYWBKFT PO 08/06/19 08:00 08/06/19 09:41 Cefazolin Sodium/ Dextrose 50 ml @ 100 mls/hr Q6H IV 08/05/19 14:00 08/06/19 02:29 DC 08/06/19 02:00 Clopidogrel Bisulfate (Plavix) 75 mg 1X ONCE PO 08/05/19 13:00 08/05/19 13:01 DC 08/05/19 15:40 Allopurinol (Zyloprim) 300 mg DAILY PO 08/06/19 09:00 08/06/19 09:00 Aspirin (Ecotrin) 81 mg DAILY PO 08/06/19 09:00 08/06/19 09:44 Niacin (Slo-Niacin) 500 mg QHS PO 08/05/19 21:00 08/05/19 20:44 Lisinopril (Prinivil) 20 mg DAILY PO 08/06/19 09:00 08/06/19 09:44 Atorvastatin Calcium (Lipitor) 5 mg QHS PO 08/05/19 21:00 08/05/19 20:44 Hydrochlorothiazide (Hydrodiuril) 25 mg DAILY PO 08/06/19 09:00 08/06/19 09:41 DUC GRANT III DO Aug 06, 2019 12:18
[2019-08-06] MEDS ORDERED: MAGNESIUM SULFATE 2GM 50 ML IV ONE (13:00)
--- NOTE | 2019-08-06 14:06 | NUR ---
SS following for discharge planning. SS reviewed pt chart. Pt is from home with spouse and is currently on room air. PT/OT ordered. SS awaiting PT/OT evaluations and recommendations at this time. SS will continue to follow for discharge planning.
[2019-08-06 15:00] VITALS: BP 127/55
--- NOTE | 2019-08-06 16:48 | NUR ---
Wound care Wound care consult for left 2nd toe wound. Pt is current pt in [facility]. Assessed wound and redressed with collagen and bandaid, recommend Xeroform and bandaid every other day. Pt has intact Prevena over bypass surgical site on left leg. No other wounds noted. will continue to follow for possible changes.
[2019-08-06] MEDS ORDERED: TAMSULOSIN 0.4 MG CAP.ER.24H. PO SCH (17:00)
[2019-08-06 19:46] VITALS: BP 127/67
[2019-08-06] MEDS: NIACIN ER 500 MG TABLET.ER PO SCH (20:22)
[2019-08-06] MEDS: METOPROLOL TART IMMED RELEASE 25 MG TABLET. PO SCH (20:22)
[2019-08-06] MEDS: ATORVASTATIN CALCIUM 10 MG TABLET. PO SCH (20:23)
[2019-08-06 22:49] VITALS: BP 134/60
[2019-08-07 02:05] VITALS: BP 125/59
[2019-08-07 05:24] LABS: BASO % 0 % (0-3); EOS # 0.1 x10^3/uL (0.0-0.7); EOS % 1 % (0-3); HEMATOCRIT 25.9 % (39.0-53.0); HEMOGLOBIN 8.4 g/dL (13.0-17.5); LYMPH # 0.8 x10^3/uL (1.0-4.8); LYMPH % 7 % (24-48); MEAN CORPUSCULAR HEMOGLOBIN 23 pg (25-35); MEAN CORPUSCULAR HGB CONC 32 g/dL (31-37); MEAN CORPUSCULAR VOLUME 70 fL (79-100); MONO # 0.9 x10^3/uL (0.0-1.1); MONO % 8 % (0-9); NEUT # 8.8 x10^3/uL (1.8-7.7); NEUT % 83 % (31-73); PLATELET COUNT 203 x10^3/uL (140-400); RED BLOOD COUNT 3.69 x10^6/uL (4.30-5.70); WHITE BLOOD COUNT 10.6 x10^3/uL (4.0-11.0)
[2019-08-07 05:38] LABS: ALBUMIN 2.7 g/dL (3.4-5.0); ALBUMIN/GLOBULIN RATIO 0.6 (1.0-1.7); CALCIUM 8.5 mg/dL (8.5-10.1); CREATININE 1.6 mg/dL (0.7-1.3); GFR 50.6; POTASSIUM 4.3 mmol/L (3.5-5.1); TOTAL BILIRUBIN 0.5 mg/dL (0.2-1.0); TOTAL PROTEIN 6.9 g/dL (6.4-8.2)
[2019-08-07 07:04] VITALS: BP 155/70
[2019-08-07] MEDS: ALLOPURINOL 300 MG TABLET. PO SCH (08:37)
[2019-08-07] MEDS: hydroCHLOROthiazide 25 MG TABLET PO SCH (08:37)
[2019-08-07] MEDS: METOPROLOL TART IMMED RELEASE 25 MG TABLET. PO SCH (08:37)
[2019-08-07] MEDS: LISINOPRIL 20 MG TABLET PO SCH (08:37)
[2019-08-07] MEDS: ASPIRIN ENTERIC COATED 81 MG TABLET.DR. PO SCH (08:37)
[2019-08-07] MEDS: CLOPIDOGREL BISULFATE 75 MG TABLET PO SCH (08:37)
--- NOTE | 2019-08-07 09:11 | PDOC ---
SUBJECTIVE ROS Follow-up for her security stage III Patient doing well overall. 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 Postoperatively his creatinine has remained stable with good urine output as documented. 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 Appears to be iron deficient. IV iron as started. Defer to primary team to good colonoscopy if deemed necessary at his age. May benefit from oral iron at discharge HTN: Current BP meds reviewed. Blood pressure is well controlled currently, minimal tachycardia is noted. Peripheral vascular disease status post bypass surgery, with nonhealing wound. Defer to vascular surgery Discussed Plan of Care and prognosis etc. at length with family () at be ide. Follow-up with us as previously scheduled I will be available if needed please call with questions concerns COMMENT/RELEVANT DATA Meds Current Medications Medications (Trade) Dose Ordered Sig/Jovany Start Time Stop Time Status Last Admin Dose Admin Al Hydroxide/Mg Hydroxide (Mylanta Plus Xs) 30 ml PRN Q3HRS PRN 08/05/19 07:45 Allopurinol (Zyloprim) 300 mg DAILY 08/06/19 09:00 08/07/19 08:37 300 MG Alprazolam (Xanax) 0.5 mg PRN BID PRN 08/05/19 19:15 Aspirin (Ecotrin) 81 mg DAILY 08/06/19 09:00 08/07/19 08:37 81 MG Atorvastatin Calcium (Lipitor) 5 mg QHS 08/05/19 21:00 08/06/19 20:23 5 MG Calcium Carbonate/ Glycine (Tums) 500 mg PRN Q3HRS PRN 08/05/19 07:45 Cefazolin Sodium 1 gm/Sodium Chloride 500 ml @ 500 mls/hr 1X ONCE 08/05/19 06:00 08/05/19 06:59 DC 08/05/19 08:29 Cefazolin Sodium/ Dextrose 50 ml @ 100 mls/hr Q6H 08/05/19 14:00 08/06/19 02:29 DC 08/06/19 02:00 100 MLS/HR Cellulose (Surgicel Fibrillar 1x2) 1 each STK-MED ONCE 08/05/19 10:31 08/05/19 10:32 DC 08/05/19 10:33 1 EACH Clopidogrel Bisulfate (Plavix) 75 mg 1X ONCE 08/05/19 13:00 08/05/19 13:01 DC 08/05/19 15:40 75 MG Dexamethasone Sodium Phosphate (Decadron) 20 mg STK-MED ONCE 08/05/19 07:09 08/05/19 07:09 DC Dextrose (Dextrose 50%-Water Syringe) 12.5 gm PRN Q15MIN PRN 08/05/19 19:15 Famotidine (Pepcid Vial) 20 mg STK-MED ONCE 08/05/19 07:07 08/05/19 07:08 DC Fentanyl Citrate (Fentanyl 2ml Vial) 100 mcg STK-MED ONCE 08/05/19 08:30 08/05/19 08:31 DC Gelatin (Gelfoam Size 12-7mm) 1 each STK-MED ONCE 08/05/19 07:25 08/05/19 07:25 DC Glycopyrrolate (Robinul) 1 mg STK-MED ONCE 08/05/19 09:55 08/05/19 09:55 DC Heparin Sodium (Porcine) 5000 unit/Sodium Chloride 505 ml @ 505 mls/hr 1X ONCE 08/05/19 06:00 08/05/19 06:59 DC 08/05/19 08:29 Hydralazine HCl (Apresoline Inj) 10 mg PRN Q10MIN PRN 08/05/19 12:00 08/05/19 12:41 10 MG Hydrochlorothiazide (Hydrodiuril) 25 mg DAILY 08/06/19 09:00 08/07/19 08:37 25 MG Hydromorphone HCl (Dilaudid) 0.5 mg PRN Q10MIN PRN 08/05/19 07:00 08/06/19 06:59 DC Ibuprofen (Motrin) 600 mg PRN Q8HRS PRN 08/05/19 19:15 Insulin Human Lispro (HumaLOG VIAL for OP,RR ONLY) 0-10 units PRN Q1HR PRN 08/05/19 07:00 08/06/19 06:59 DC Iohexol (Omnipaque 300 Mg/ml) 50 ml STK-MED ONCE 08/05/19 07:25 08/05/19 07:25 DC Lidocaine HCl (Lidocaine Pf 2% Vial) 5 ml STK-MED ONCE 08/05/19 07:07 08/05/19 07:08 DC Lisinopril (Prinivil) 20 mg DAILY 08/06/19 09:00 08/07/19 08:37 20 MG Magnesium Sulfate 50 ml @ 25 mls/hr 1X ONCE 08/06/19 13:00 08/06/19 14:59 DC 08/06/19 13:26 25 MLS/HR Metoprolol Tartrate (Lopressor) 12.5 mg 1X ONCE 08/06/19 10:00 08/06/19 10:01 DC 08/06/19 13:25 12.5 MG Morphine Sulfate (Morphine Sulfate) 2 mg PRN Q1HR PRN 08/05/19 07:45 Naloxone HCl (Narcan) 0.1 mg PRN Q2MIN PRN 08/05/19 07:45 Neostigmine Methylsulfate (Neostigmine Methylsulfate) 5 mg STK-MED ONCE 08/05/19 09:55 08/05/19 09:55 DC Niacin (Slo-Niacin) 500 mg QHS 08/05/19 21:00 08/06/19 20:22 500 MG Ondansetron HCl (Zofran) 4 mg PRN Q6HRS PRN 08/05/19 07:45 Oxycodone/ Acetaminophen (Percocet 5/325) 2 tab PRN Q4HRS PRN 08/05/19 07:45 Papaverine HCl 60 mg STK-MED ONCE 08/05/19 07:25 08/05/19 07:25 DC Phenylephrine HCl ([place]-Synephrine Inj) 10 mg STK-MED ONCE 08/05/19 08:30 08/05/19 08:30 DC Prochlorperazine Edisylate (Compazine) 5 mg PACU PRN PRN 08/05/19 07:00 08/06/19 06:59 DC 08/05/19 12:07 5 MG Propofol 20 ml @ As Directed STK-MED ONCE 08/05/19 07:07 08/05/19 07:08 DC Ringer's Solution 1,000 ml @ 30 mls/hr Q24H 08/05/19 07:00 08/05/19 18:59 DC 08/05/19 12:11 30 MLS/HR Rocuronium Endeavor (Zemuron) 100 mg STK-MED ONCE 08/05/19 07:08 08/05/19 07:08 DC Sodium Chloride (Normal Saline Flush) 3 ml QSHIFT PRN 08/06/19 09:15 Cancel Tamsulosin HCl (Flomax) 0.4 mg DAILYWSUP 08/06/19 17:00 08/06/19 17:20 0.4 MG Thrombin 20,000 unit STK-MED ONCE 08/05/19 07:25 08/05/19 07:25 DC Lab Laboratory Tests Test 08/06/19 10:20 08/06/19 11:43 08/06/19 16:55 08/07/19 05:00 White Blood Count 9.9 x10^3/uL (4.0-11.0) 10.6 x10^3/uL (4.0-11.0) Red Blood Count 3.81 x10^6/uL (4.30-5.70) 3.69 x10^6/uL (4.30-5.70) Hemoglobin 8.5 g/dL (13.0-17.5) 8.4 g/dL (13.0-17.5) Hematocrit 26.7 % (39.0-53.0) 25.9 % (39.0-53.0) Mean Corpuscular Volume 70 fL (79-100) 70 fL (79-100) Mean Corpuscular Hemoglobin 22 pg (25-35) 23 pg (25-35) Mean Corpuscular Hemoglobin Concent 32 g/dL (31-37) 32 g/dL (31-37) Red Cell Distribution Width 15.8 % (11.5-14.5) 16.0 % (11.5-14.5) Platelet Count 199 x10^3/uL (140-400) 203 x10^3/uL (140-400) Neutrophils (%) (Auto) 81 % (31-73) 83 % (31-73) Lymphocytes (%) (Auto) 11 % (24-48) 7 % (24-48) Monocytes (%) (Auto) 8 % (0-9) 8 % (0-9) Eosinophils (%) (Auto) 0 % (0-3) 1 % (0-3) Basophils (%) (Auto) 0 % (0-3) 0 % (0-3) Neutrophils # (Auto) 8.0 x10^3/uL (1.8-7.7) 8.8 x10^3/uL (1.8-7.7) Lymphocytes # (Auto) 1.1 x10^3/uL (1.0-4.8) 0.8 x10^3/uL (1.0-4.8) Monocytes # (Auto) 0.8 x10^3/uL (0.0-1.1) 0.9 x10^3/uL (0.0-1.1) Eosinophils # (Auto) 0.0 x10^3/uL (0.0-0.7) 0.1 x10^3/uL (0.0-0.7) Basophils # (Auto) 0.0 x10^3/uL (0.0-0.2) 0.0 x10^3/uL (0.0-0.2) Sodium Level 139 mmol/L (136-145) 138 mmol/L (136-145) Potassium Level 3.9 mmol/L (3.5-5.1) 4.3 mmol/L (3.5-5.1) Chloride Level 105 mmol/L (98-107) 104 mmol/L (98-107) Carbon Dioxide Level 25 mmol/L (21-32) 25 mmol/L (21-32) Anion Gap 9 (6-14) 9 (6-14) Blood Urea Nitrogen 26 mg/dL (8-26) 29 mg/dL (8-26) Creatinine 1.7 mg/dL (0.7-1.3) 1.6 mg/dL (0.7-1.3) Estimated GFR (Cockcroft-Gault) 47.2 50.6 Glucose Level 118 mg/dL (70-99) 123 mg/dL (70-99) Calcium Level 8.2 mg/dL (8.5-10.1) 8.5 mg/dL (8.5-10.1) Phosphorus Level 2.7 mg/dL (2.6-4.7) Magnesium Level 1.6 mg/dL (1.8-2.4) Iron Level 21 ug/dL (65-175) Total Iron Binding Capacity 192 ug/dL (250-450) Iron Saturation 11 % (15-34) Ferritin 309 ng/mL (26-388) Glucose (Fingerstick) 101 mg/dL (70-99) 124 mg/dL (70-99) BUN/Creatinine Ratio 18 (6-20) Total Bilirubin 0.5 mg/dL (0.2-1.0) Aspartate Amino Transf (AST/SGOT) 18 U/L (15-37) Alanine Aminotransferase (ALT/SGPT) 13 U/L (16-63) Alkaline Phosphatase 48 U/L (46-116) Total Protein 6.9 g/dL (6.4-8.2) Albumin 2.7 g/dL (3.4-5.0) Albumin/Globulin Ratio 0.6 (1.0-1.7) Test 08/07/19 07:07 Glucose (Fingerstick) 130 mg/dL (70-99) Results All relevant outside records, renal labs, imaging studies, telemetry/EKG's were reviewed. SOPHIA VERGARA MD Aug 07, 2019 09:11
[2019-08-07] MEDS ORDERED: IRON SUCROSE COMPLEX 200 MG in IV NORMAL SALINE 100ML 100 ML IV SCH (10:00)
[2019-08-07 10:18] VITALS: BP 119/57
--- NOTE | 2019-08-07 13:17 | NUR ---
SS following up with discharge planning. PT recommended home healthcare at discharge. SS spoke with pt and pt's spouse in regards to discharge planning and home healthcare options. Pt and pt's spouse reported having no preference of company and requested SS choose a company. SS phoned and faxed referral to [facility], ; fax [phone]. SS will continue to follow for discharge planning.
--- NOTE | 2019-08-07 13:19 | PDOC ---
[employer] PROGRESS NOTE Chief Complaint Chief Complaint Postop left lower extremity vascular bypass Chronic kidney disease stage III Anemia: Microcytic in nature HTNLeft lower extremity severe peripheral arterial disease, symptomatic with ischemic rest pain and a toe ulcer on his left second toe, which is nonhealing. POD #2 History of Present Illness History of Present Illness 08/07/2019 POD#2 Pt was seen and examined. Reports no acute complaints and is ready for D/C. 08/06/2019 POD#1 Pt was seen and examined. Was resting comfortably on exam with no acute complaints. Vitals/I&O Vitals/I&O: Vital Signs Date Time Temp Pulse Resp B/P (MAP) Pulse Ox O2 Delivery O2 Flow Rate FiO2 08/07/19 10:18 98.7 96 18 119/57 (77) 96 Room Air 98.7 I & O 08/06/19 08/06/19 08/07/19 15:00 23:00 07:00 Intake Total 800 ml 420 ml Output Total 420 ml 1250 ml 200 ml Balance 380 ml -1250 ml 220 ml Physical Exam General: Alert, Oriented X3, Cooperative Heart: Regular rate, Normal S1, Normal S2 Lungs: Clear, Wheezing Abdomen: Normal bowel sounds, Soft Extremities: No clubbing, No cyanosis, No edema Skin: No rashes, No breakdown, Other (Left low extremity with clean dry and intact dressing with wound vac in place) Labs Labs: Laboratory Tests Test 08/06/19 16:55 08/07/19 05:00 08/07/19 07:07 08/07/19 11:09 Glucose (Fingerstick) 124 mg/dL (70-99) 130 mg/dL (70-99) 172 mg/dL (70-99) White Blood Count 10.6 x10^3/uL (4.0-11.0) Red Blood Count 3.69 x10^6/uL (4.30-5.70) Hemoglobin 8.4 g/dL (13.0-17.5) Hematocrit 25.9 % (39.0-53.0) Mean Corpuscular Volume 70 fL (79-100) Mean Corpuscular Hemoglobin 23 pg (25-35) Mean Corpuscular Hemoglobin Concent 32 g/dL (31-37) Red Cell Distribution Width 16.0 % (11.5-14.5) Platelet Count 203 x10^3/uL (140-400) Neutrophils (%) (Auto) 83 % (31-73) Lymphocytes (%) (Auto) 7 % (24-48) Monocytes (%) (Auto) 8 % (0-9) Eosinophils (%) (Auto) 1 % (0-3) Basophils (%) (Auto) 0 % (0-3) Neutrophils # (Auto) 8.8 x10^3/uL (1.8-7.7) Lymphocytes # (Auto) 0.8 x10^3/uL (1.0-4.8) Monocytes # (Auto) 0.9 x10^3/uL (0.0-1.1) Eosinophils # (Auto) 0.1 x10^3/uL (0.0-0.7) Basophils # (Auto) 0.0 x10^3/uL (0.0-0.2) Sodium Level 138 mmol/L (136-145) Potassium Level 4.3 mmol/L (3.5-5.1) Chloride Level 104 mmol/L (98-107) Carbon Dioxide Level 25 mmol/L (21-32) Anion Gap 9 (6-14) Blood Urea Nitrogen 29 mg/dL (8-26) Creatinine 1.6 mg/dL (0.7-1.3) Estimated GFR (Cockcroft-Gault) 50.6 BUN/Creatinine Ratio 18 (6-20) Glucose Level 123 mg/dL (70-99) Calcium Level 8.5 mg/dL (8.5-10.1) Total Bilirubin 0.5 mg/dL (0.2-1.0) Aspartate Amino Transf (AST/SGOT) 18 U/L (15-37) Alanine Aminotransferase (ALT/SGPT) 13 U/L (16-63) Alkaline Phosphatase 48 U/L (46-116) Total Protein 6.9 g/dL (6.4-8.2) Albumin 2.7 g/dL (3.4-5.0) Albumin/Globulin Ratio 0.6 (1.0-1.7) Review of Systems Review of Systems: Denies CP Denies SOB Denies N/V/D Assessment and Plan Assessmemt and Plan Postop left lower extremity vascular bypass Chronic kidney disease stage III Anemia: Microcytic in nature HTN Left lower extremity severe peripheral arterial disease, symptomatic with ischemic rest pain and a toe ulcer on his left second toe, which is nonhealing. POD #2 Plan: 1) Plan to D/C patient today if agreeable with other specialists 2) Full code 3) Daily labs 4) DVT prophylaxis 5) PT/OT Comment Review of Relevant I have reviewed the following items mayela (where applicable) has been applied. Medications: Current Medications Medications (Trade) Dose Ordered Sig/Jovany Route PRN Reason Start Time Stop Time Status Last Admin Dose Admin Tamsulosin HCl (Flomax) 0.4 mg DAILYWSUP PO 08/06/19 17:00 08/06/19 17:20 Metoprolol Tartrate (Lopressor) 12.5 mg BID PO 08/06/19 21:00 08/07/19 08:37 Iron Sucrose 200 mg/Sodium Chloride 110 ml @ 55 mls/hr 3X/WEEK IV 08/07/19 10:00 08/17/19 10:59 08/07/19 11:08 DUC GRANT III DO Aug 07, 2019 13:19
--- NOTE | 2019-08-07 13:37 | SNU/HH DC ---
DISCHARGE WITH HOME HEALTH DISCHARGE INFORMATION: Condition on Discharge: Stable CODE STATUS: Code Status: Full HOME HEALTH: Face to Face: I certify this patient is under my care and that I, or a nurse practitioner or physician's career services assistant working with me, had a face to face encounter that meets the physician face to face encounter requirements with this patient on []. Medical Complications: Other (recent lower extremity bypass surgery with wounds) Senior Living For: Assess & Educate Safety RN For Eval/Treatment: Yes Physical Therapy For: Evalulation/Treatment Occupational Therapy For: Evaluation/Treatment Home Health Aide For: Self-care JALOUSIES INSTALLER For: Community Resources Pt Meets Homebound Status: Poor coordination w/ amb. POST DISCHARGE ORDERS: Activity Instructions for Disc: Activity as tolerated Weight Bearing Status after Di: As tolerated Bathing Instructions: Shower-keep dressing dry DIET AFTER DISCHARGE: Cardiac Wound/Incision Care: Keep wound/cast CDI TREATMENT/EQUIPMENT ORDERS: Adaptive Equipment Issued: None CERTIFICATION STATEMENT: Certification Statement: Certification Statement: Based on the above finding, I certify that this patient is confined to the home and needs intermittent snf care, physical therapy and/or speech therapy, or continues to need occupational therapy.~ This patient is under my care, and I have initiated the establishment of the plan of care.~ This patient will be followed by myself or a community physician who will periodically review the plan of care. Home Meds Active Scripts Ibuprofen (IBUPROFEN) 600 Mg Tablet, 600 MG PO PRN Q8HRS PRN for PAIN for 5 Days, #20 TAB Prov:CORNELIO SOL DO 04/26/19 Aspirin (ASPIRIN EC) 81 Mg Tablet.dr, 1 TAB PO DAILY, #30 TAB 3 Refills Prov:TULIO MCKENNA MD 05/20/18 Reported Medications Niacin (NIASPAN) 500 Mg Tab.er.24h, 1 TAB PO QHS for supplement, #30 TAB 5 Refil ls 07/30/19 Pyridoxine HCl (Vitamin B6) (B-6) 200 Mg Tablet.er, 100 MG PO DAILY, TAB.SR 05/19/18 Tamsulosin Hcl (TAMSULOSIN HCL) 0.4 Mg Cap.er.24h, 1 CAP PO DAILYWSUP 05/19/18 Allopurinol (ALLOPURINOL) 300 Mg Tablet, 1 TAB PO DAILY 05/19/18 Lisinopril/Hydrochlorothiazide (LISINOPRIL-HCTZ 20-25 MG TAB) 1 Each Tablet, 1 TAB PO DAILY 05/19/18 Lovastatin (LOVASTATIN) 20 Mg Tablet, 20 MG PO BID 05/19/18 Alprazolam (ALPRAZOLAM) 0.5 Mg Tablet, 0.5 MG PO PRN PRN for ANXIETY / AGITATION 05/19/18 DUC GRANT III DO Aug 07, 2019 13:37
--- NOTE | 2019-08-07 14:53 | NUR ---
SS following up with discharge planning. Discharge orders for home healthcare phoned and faxed to [facility], ; fax [phone]. Pt's RN notified.
[2019-08-07 14:57] VITALS: BP 110/50
[2019-08-07] MEDS ORDERED: METO25TA4 PO (15:17)
--- NOTE | 2019-08-07 15:44 | PDOC ---
PROGRESS NOTES Subjective Subjective "I'm doing good. I am hoping to go home today!" Objective Objective Vascular Surgery - POD#2 Left Fem-peroneal bypass General: Patient seen and examined in room. Patient's is present. No complaints other than no BM since admission. Pain is well-controlled. Vital signs: Stable. Afebrile. CV: RRR Pulm: Anteriorly clear. Unlabored. No wheezing. Abd: Soft. + sounds. Denies nausea. No BM for 3 days. LLE: Left leg with Prevena along entire incision attached to hospital vac, functioning, minimal drainage in canister. Triphasic doppler flow at post tibial artery; monophasic DP. Moderate swelling from knee down including foot. Small ulcer examined on left 2nd toe - clean, tender to touch. No visible drainage or erythema. Laboratory data reviewed as well as previous progress notes. Assessment/Plan: Left lower extremity severe peripheral arterial disease, symptomatic with ischemic rest pain and a toe ulcer on his left second toe, which is nonhealing. POD #2: 1. Left common femoral artery to posterior tibial artery bypass graft using in situ left great saphenous vein. 2. Left great saphenous vein was used in situ fashion and the valves were cut with a LeMaitre valvulotome. Has ambulated well with PT/OT. Most desirous of going home. I have spoke with HH services regarding Prevena incisional vac instructions. I have also given these instructions to the patient and his . Dressing intact for only 7 days and to remove if malfunction. May shower. Instructed patient to elevate LLE more and to spend time reclining with leg above his heart to help reduce swelling. He verbalized understanding of this. Acute on chronic anemia related to CKD and surgical blood loss. Patient has been started on iron supplementation and verbalizes he has been on this in the past. Scheduled to f/u with Dr. Denis on 09/03/19 at 10:30 a.m. Ok to discharge to home with HH services. Dr. Denis updated on status as well. Vital Signs Date Time Temp Pulse Resp B/P (MAP) Pulse Ox O2 Delivery O2 Flow Rate FiO2 08/07/19 14:57 98.4 104 20 110/50 (70) 98 Room Air 98.4 08/05/19 12:14 10 Intake and Output 08/07/19 07:00 Intake Total 1220 ml Output Total 1870 ml Balance -650 ml Intake Oral 1220 ml Output Urine Total 1870 ml Comment Review of Relevant I have reviewed the following items mayela (where applicable) has been applied. Labs Laboratory Tests Test 08/05/19 16:31 08/05/19 20:57 08/06/19 08:18 08/06/19 10:20 Glucose (Fingerstick) 164 mg/dL (70-99) 118 mg/dL (70-99) 100 mg/dL (70-99) White Blood Count 9.9 x10^3/uL (4.0-11.0) Red Blood Count 3.81 x10^6/uL (4.30-5.70) Hemoglobin 8.5 g/dL (13.0-17.5) Hematocrit 26.7 % (39.0-53.0) Mean Corpuscular Volume 70 fL (79-100) Mean Corpuscular Hemoglobin 22 pg (25-35) Mean Corpuscular Hemoglobin Concent 32 g/dL (31-37) Red Cell Distribution Width 15.8 % (11.5-14.5) Platelet Count 199 x10^3/uL (140-400) Neutrophils (%) (Auto) 81 % (31-73) Lymphocytes (%) (Auto) 11 % (24-48) Monocytes (%) (Auto) 8 % (0-9) Eosinophils (%) (Auto) 0 % (0-3) Basophils (%) (Auto) 0 % (0-3) Neutrophils # (Auto) 8.0 x10^3/uL (1.8-7.7) Lymphocytes # (Auto) 1.1 x10^3/uL (1.0-4.8) Monocytes # (Auto) 0.8 x10^3/uL (0.0-1.1) Eosinophils # (Auto) 0.0 x10^3/uL (0.0-0.7) Basophils # (Auto) 0.0 x10^3/uL (0.0-0.2) Sodium Level 139 mmol/L (136-145) Potassium Level 3.9 mmol/L (3.5-5.1) Chloride Level 105 mmol/L (98-107) Carbon Dioxide Level 25 mmol/L (21-32) Anion Gap 9 (6-14) Blood Urea Nitrogen 26 mg/dL (8-26) Creatinine 1.7 mg/dL (0.7-1.3) Estimated GFR (Cockcroft-Gault) 47.2 Glucose Level 118 mg/dL (70-99) Calcium Level 8.2 mg/dL (8.5-10.1) Phosphorus Level 2.7 mg/dL (2.6-4.7) Magnesium Level 1.6 mg/dL (1.8-2.4) Iron Level 21 ug/dL (65-175) Total Iron Binding Capacity 192 ug/dL (250-450) Iron Saturation 11 % (15-34) Ferritin 309 ng/mL (26-388) Test 08/06/19 11:43 08/06/19 16:55 08/07/19 05:00 08/07/19 07:07 Glucose (Fingerstick) 101 mg/dL (70-99) 124 mg/dL (70-99) 130 mg/dL (70-99) White Blood Count 10.6 x10^3/uL (4.0-11.0) Red Blood Count 3.69 x10^6/uL (4.30-5.70) Hemoglobin 8.4 g/dL (13.0-17.5) Hematocrit 25.9 % (39.0-53.0) Mean Corpuscular Volume 70 fL (79-100) Mean Corpuscular Hemoglobin 23 pg (25-35) Mean Corpuscular Hemoglobin Concent 32 g/dL (31-37) Red Cell Distribution Width 16.0 % (11.5-14.5) Platelet Count 203 x10^3/uL (140-400) Neutrophils (%) (Auto) 83 % (31-73) Lymphocytes (%) (Auto) 7 % (24-48) Monocytes (%) (Auto) 8 % (0-9) Eosinophils (%) (Auto) 1 % (0-3) Basophils (%) (Auto) 0 % (0-3) Neutrophils # (Auto) 8.8 x10^3/uL (1.8-7.7) Lymphocytes # (Auto) 0.8 x10^3/uL (1.0-4.8) Monocytes # (Auto) 0.9 x10^3/uL (0.0-1.1) Eosinophils # (Auto) 0.1 x10^3/uL (0.0-0.7) Basophils # (Auto) 0.0 x10^3/uL (0.0-0.2) Sodium Level 138 mmol/L (136-145) Potassium Level 4.3 mmol/L (3.5-5.1) Chloride Level 104 mmol/L (98-107) Carbon Dioxide Level 25 mmol/L (21-32) Anion Gap 9 (6-14) Blood Urea Nitrogen 29 mg/dL (8-26) Creatinine 1.6 mg/dL (0.7-1.3) Estimated GFR (Cockcroft-Gault) 50.6 BUN/Creatinine Ratio 18 (6-20) Glucose Level 123 mg/dL (70-99) Calcium Level 8.5 mg/dL (8.5-10.1) Total Bilirubin 0.5 mg/dL (0.2-1.0) Aspartate Amino Transf (AST/SGOT) 18 U/L (15-37) Alanine Aminotransferase (ALT/SGPT) 13 U/L (16-63) Alkaline Phosphatase 48 U/L (46-116) Total Protein 6.9 g/dL (6.4-8.2) Albumin 2.7 g/dL (3.4-5.0) Albumin/Globulin Ratio 0.6 (1.0-1.7) Test 08/07/19 11:09 Glucose (Fingerstick) 172 mg/dL (70-99) Laboratory Tests Test 08/06/19 16:55 08/07/19 05:00 08/07/19 07:07 08/07/19 11:09 Glucose (Fingerstick) 124 mg/dL (70-99) 130 mg/dL (70-99) 172 mg/dL (70-99) White Blood Count 10.6 x10^3/uL (4.0-11.0) Red Blood Count 3.69 x10^6/uL (4.30-5.70) Hemoglobin 8.4 g/dL (13.0-17.5) Hematocrit 25.9 % (39.0-53.0) Mean Corpuscular Volume 70 fL (79-100) Mean Corpuscular Hemoglobin 23 pg (25-35) Mean Corpuscular Hemoglobin Concent 32 g/dL (31-37) Red Cell Distribution Width 16.0 % (11.5-14.5) Platelet Count 203 x10^3/uL (140-400) Neutrophils (%) (Auto) 83 % (31-73) Lymphocytes (%) (Auto) 7 % (24-48) Monocytes (%) (Auto) 8 % (0-9) Eosinophils (%) (Auto) 1 % (0-3) Basophils (%) (Auto) 0 % (0-3) Neutrophils # (Auto) 8.8 x10^3/uL (1.8-7.7) Lymphocytes # (Auto) 0.8 x10^3/uL (1.0-4.8) Monocytes # (Auto) 0.9 x10^3/uL (0.0-1.1) Eosinophils # (Auto) 0.1 x10^3/uL (0.0-0.7) Basophils # (Auto) 0.0 x10^3/uL (0.0-0.2) Sodium Level 138 mmol/L (136-145) Potassium Level 4.3 mmol/L (3.5-5.1) Chloride Level 104 mmol/L (98-107) Carbon Dioxide Level 25 mmol/L (21-32) Anion Gap 9 (6-14) Blood Urea Nitrogen 29 mg/dL (8-26) Creatinine 1.6 mg/dL (0.7-1.3) Estimated GFR (Cockcroft-Gault) 50.6 BUN/Creatinine Ratio 18 (6-20) Glucose Level 123 mg/dL (70-99) Calcium Level 8.5 mg/dL (8.5-10.1) Total Bilirubin 0.5 mg/dL (0.2-1.0) Aspartate Amino Transf (AST/SGOT) 18 U/L (15-37) Alanine Aminotransferase (ALT/SGPT) 13 U/L (16-63) Alkaline Phosphatase 48 U/L (46-116) Total Protein 6.9 g/dL (6.4-8.2) Albumin 2.7 g/dL (3.4-5.0) Albumin/Globulin Ratio 0.6 (1.0-1.7) Medications Current Medications Heparin Sodium (Porcine) 5000 unit/Sodium Chloride 505 ml @ 505 mls/hr 1X ONCE IRR Last administered on 08/05/19at 08:29; Start 08/05/19 at 06:00; Stop 08/05/19 at 06:59; Status DC Cefazolin Sodium 1 gm/Sodium Chloride 500 ml @ 500 mls/hr 1X ONCE IRR Last administered on 08/05/19at 08:29; Start 08/05/19 at 06:00; Stop 08/05/19 at 06:59; Status DC Ondansetron HCl (Zofran) 4 mg PRN Q6HRS PRN IV NAUSEA/VOMITING; Start 08/05/19 at 07:00; Stop 08/06/19 at 06:59; Status DC Fentanyl Citrate (Fentanyl 2ml Vial) 25 mcg PRN Q5MIN PRN IV MILD PAIN 1-3; Start 08/05/19 at 07:00; Stop 08/06/19 at 06:59; Status DC Fentanyl Citrate (Fentanyl 2ml Vial) 50 mcg PRN Q5MIN PRN IV MODERATE TO SEVERE PAIN Last administered on 08/05/19at 12:42; Start 08/05/19 at 07:00; Stop 08/06/19 at 06:59; Status DC Morphine Sulfate (Morphine Sulfate) 1 mg PRN Q10MIN PRN IV SEVERE PAIN 7-10; Start 08/05/19 at 07:00; Stop 08/06/19 at 06:59; Status DC Ringer's Solution 1,000 ml @ 30 mls/hr Q24H IV Last administered on 08/05/19at 12:11; Start 08/05/19 at 07:00; Stop 08/05/19 at 18:59; Status DC Hydromorphone HCl (Dilaudid) 0.5 mg PRN Q10MIN PRN IV SEV PAIN, Second choice; Start 08/05/19 at 07:00; Stop 08/06/19 at 06:59; Status DC Prochlorperazine Edisylate (Compazine) 5 mg PACU PRN PRN IV NAUSEA, MRX1 Last administered on 08/05/19at 12:07; Start 08/05/19 at 07:00; Stop 08/06/19 at 06:59; Status DC Cefazolin Sodium/ Dextrose 50 ml @ 100 mls/hr 1X PREOP PRN IV PRIOR TO PROCEDURE Last administered on 08/05/19at 07:45; Start 08/05/19 at 06:00; Stop 08/05/19 at 18:00; Status DC Insulin Human Lispro (HumaLOG VIAL for OP,RR ONLY) 0-10 units PRN Q1HR PRN SQ PER PROTOCOL; Start 08/05/19 at 07:00; Stop 08/06/19 at 06:59; Status DC Lidocaine HCl (Lidocaine Pf 2% Vial) 5 ml STK-MED ONCE .ROUTE ; Start 08/05/19 at 07:07; Stop 08/05/19 at 07:08; Status DC Propofol 20 ml @ As Directed STK-MED ONCE IV ; Start 08/05/19 at 07:07; Stop 08/05/19 at 07:08; Status DC Famotidine (Pepcid Vial) 20 mg STK-MED ONCE .ROUTE ; Start 08/05/19 at 07:07; Stop 08/05/19 at 07:08; Status DC Ondansetron HCl (Zofran) 4 mg STK-MED ONCE .ROUTE ; Start 08/05/19 at 07:07; Stop 08/05/19 at 07:08; Status DC Dexamethasone Sodium Phosphate (Decadron) 4 mg STK-MED ONCE .ROUTE ; Start 08/05/19 at 07:07; Stop 08/05/19 at 07:08; Status DC Rocuronium [place] (Zemuron) 100 mg STK-MED ONCE .ROUTE ; Start 08/05/19 at 07:08; Stop 08/05/19 at 07:08; Status DC Fentanyl Citrate (Fentanyl 2ml Vial) 100 mcg STK-MED ONCE .ROUTE ; Start 08/05/19 at 07:08; Stop 08/05/19 at 07:08; Status DC Dexamethasone Sodium Phosphate (Decadron) 20 mg STK-MED ONCE .ROUTE ; Start 08/05/19 at 07:09; Stop 08/05/19 at 07:09; Status DC Gelatin (Gelfoam Size 12-7mm) 1 each STK-MED ONCE .ROUTE ; Start 08/05/19 at 07:25; Stop 08/05/19 at 07:25; Status DC Iohexol (Omnipaque 300 Mg/ml) 50 ml STK-MED ONCE .ROUTE ; Start 08/05/19 at 07:25; Stop 08/05/19 at 07:25; Status DC Cellulose (Surgicel Fibrillar 1x2) 1 each STK-MED ONCE .ROUTE Last administered on 08/05/19at 10:12; Start 08/05/19 at 07:25; Stop 08/05/19 at 07:25; Status DC Papaverine HCl 60 mg STK-MED ONCE .ROUTE ; Start 08/05/19 at 07:25; Stop 9 at 07:25; Status DC Thrombin 20,000 unit STK-MED ONCE TP ; Start 08/05/19 at 07:25; Stop 08/05/19 at 07:25; Status DC Aspirin (Ecotrin) 325 mg DAILYWBKFT PO ; Start 08/06/19 at 08:00; Stop 08/05/19 at 19:13; Status DC Clopidogrel Bisulfate (Plavix) 75 mg DAILYWBKFT PO Last administered on 08/07/19at 08:37; Start 08/06/19 at 08:00 Al Hydroxide/Mg Hydroxide (Mylanta Plus Xs) 30 ml PRN Q3HRS PRN PO HEARTBURN / GAS; Start 08/05/19 at 07:45 Calcium Carbonate/ Glycine (Tums) 500 mg PRN Q3HRS PRN PO INDIGESTION; Start 08/05/19 at 07:45 Naloxone HCl (Narcan) 0.1 mg PRN Q2MIN PRN IV ADMIN; Start 08/05/19 at 07:45 Sodium Chloride (Normal Saline Flush) 3 ml QSHIFT PRN IV AFTER MEDS AND BLOOD DRAWS; Start 08/05/19 at 07:45 Sodium Chloride 1,000 ml @ 125 mls/hr Q8H IV Last administered on 08/05/19at 22:41; Start 08/05/19 at 07:35; Stop 08/06/19 at 09:15; Status DC Oxycodone/ Acetaminophen (Percocet 5/325) 1 tab PRN Q4HRS PRN PO MILD PAIN 1-3 Last administered on 08/06/19at 09:43; Start 08/05/19 at 07:45 Oxycodone/ Acetaminophen (Percocet 5/325) 2 tab PRN Q4HRS PRN PO MODERATE PAIN, SEVERE PAIN; Start 08/05/19 at 07:45 Morphine Sulfate (Morphine Sulfate) 2 mg PRN Q1HR PRN IV PAIN; Start 08/05/19 at 07:45 Ondansetron HCl (Zofran) 4 mg PRN Q6HRS PRN IV NAUESA, 1ST CHOICE; Start 08/05/19 at 07:45 Cefazolin Sodium/ Dextrose 50 ml @ 100 mls/hr Q6H IV Last administered on 08/06/19at 02:00; Start 08/05/19 at 14:00; Stop 08/06/19 at 02:29; Status DC Fentanyl Citrate (Fentanyl 2ml Vial) 100 mcg STK-MED ONCE .ROUTE ; Start 08/05/19 at 08:03; Stop 08/05/19 at 08:03; Status DC Phenylephrine HCl ([place]-Synephrine Inj) 10 mg STK-MED ONCE .ROUTE ; Start 08/05/19 at 08:30; Stop 08/05/19 at 08:30; Status DC Fentanyl Citrate (Fentanyl 2ml Vial) 100 mcg STK-MED ONCE .ROUTE ; Start 08/05/19 at 08:30; Stop 08/05/19 at 08:31; Status DC Neostigmine Methylsulfate (Neostigmine Methylsulfate) 5 mg STK-MED ONCE .ROUTE ; Start 08/05/19 at 09:55; Stop 08/05/19 at 09:55; Status DC Glycopyrrolate (Robinul) 1 mg STK-MED ONCE .ROUTE ; Start 08/05/19 at 09:55; Stop 08/05/19 at 09:55; Status DC Cellulose (Surgicel Fibrillar 1x2) 1 each STK-MED ONCE .ROUTE Last administered on 08/05/19at 10:33; Start 08/05/19 at 10:31; Stop 08/05/19 at 10:32; Status DC Hydralazine HCl (Apresoline Inj) 20 mg STK-MED ONCE .ROUTE ; Start 08/05/19 at 11:51; Stop 08/05/19 at 11:52; Status DC Hydralazine HCl (Apresoline Inj) 10 mg PRN Q10MIN PRN IVP HYPERTENSION Last administered on 08/05/19at 12:41; Start 08/05/19 at 12:00 Clopidogrel Bisulfate (Plavix) 75 mg 1X ONCE PO Last administered on 08/05/19at 15:40; Start 08/05/19 at 13:00; Stop 08/05/19 at 13:01; Status DC Allopurinol (Zyloprim) 300 mg DAILY PO Last administered on 08/07/19 08:37; Start 08/06/19 at 09:00 Alprazolam (Xanax) 0.5 mg PRN BID PRN PO ANXIETY / AGITATION; Start 08/05/19 at 19:15 Aspirin (Ecotrin) 81 mg DAILY PO Last administered on 08/07/19 08:37; Start 08/06/19 at 09:00 Niacin (Slo-Niacin) 500 mg QHS PO Last administered on 08/06/19at 20:22; Start 08/05/19 at 21:00 Tamsulosin HCl (Flomax) 0.4 mg DAILYWSUP PO Last administered on 08/06/19at 17:20; Start 08/06/19 at 17:00 Ibuprofen (Motrin) 600 mg PRN Q8HRS PRN PO INFLAMMATION; Start 08/05/19 at 19:15 Lisinopril (Prinivil) 20 mg DAILY PO Last administered on 08/07/19at 08:37; Start 08/06/19 at 09:00 Atorvastatin Calcium (Lipitor) 5 mg QHS PO Last administered on 08/06/19at 20:23; Start 08/05/19 at 21:00 Dextrose (Dextrose 50%-Water Syringe) 12.5 gm PRN Q15MIN PRN IV SEE COMMENTS; Start 08/05/19 at 19:15 Hydrochlorothiazide (Hydrodiuril) 25 mg DAILY PO Last administered on 08/07/19at 08:37; Start 08/06/19 at 09:00 Sodium Chloride (Normal Saline Flush) 3 ml QSHIFT PRN IV AFTER MEDS AND BLOOD DRAWS; Start 08/06/19 at 09:15; Status Cancel Metoprolol Tartrate (Lopressor) 12.5 mg BID PO Last administered on 08/07/19at 08:37; Start 08/06/19 at 21:00 Metoprolol Tartrate (Lopressor) 12.5 mg 1X ONCE PO Last administered on 08/06/19at 13:25; Start 08/06/19 at 10:00; Stop 08/06/19 at 10:01; Status DC Magnesium Sulfate 50 ml @ 25 mls/hr 1X ONCE IV Last administered on 08/06/19at 13:26; Start 08/06/19 at 13:00; Stop 08/06/19 at 14:59; Status DC Iron Sucrose 200 mg/Sodium Chloride 110 ml @ 55 mls/hr 3X/WEEK IV Last administered on 08/07/19at 11:08; Start 08/07/19 at 10:00; Stop 08/17/19 at 10:59 Active Scripts Active Ibuprofen 600 Mg Tablet 600 Mg PO PRN Q8HRS PRN 5 Days Aspirin Ec (Aspirin) 81 Mg Tablet.dr 1 Tab PO DAILY Reported Metoprolol Tartrate 25 Mg Tablet 12.5 Mg PO BID Niaspan (Niacin) 500 Mg Tab.er.24h 1 Tab PO QHS B-6 (Pyridoxine HCl (Vitamin B6)) 200 Mg Tablet.er 100 Mg PO DAILY Tamsulosin Hcl 0.4 Mg Cap.er.24h 1 Cap PO DAILYWSUP Allopurinol 300 Mg Tablet 1 Tab PO DAILY Lisinopril-Hctz 20-25 Mg Tab (Lisinopril/Hydrochlorothiazide) 1 Each Tablet 1 Tab PO DAILY Lovastatin 20 Mg Tablet 20 Mg PO BID Alprazolam 0.5 Mg Tablet 0.5 Mg PO PRN PRN Vitals/I & O Vital Sign - Last 24 Hours 08/06/19 08/06/19 08/06/19 08/06/19 19:46 20:00 20:22 22:49 Temp 98.3 98.4 98.3 98.4 Pulse 99 99 95 Resp 18 18 B/P (MAP) 127/67 (87) 127/67 134/60 (84) Pulse Ox 97 98 O2 Delivery Room Air Room Air Room Air 08/07/19 08/07/19 08/07/19 08/07/19 02:05 07:04 08:00 08:37 Temp 98.7 98.7 98.7 98.7 Pulse 97 108 108 Resp 18 18 B/P (MAP) 125/59 (81) 155/70 (98) 155/70 Pulse Ox 96 97 O2 Delivery Room Air Room Air Room Air 08/07/19 08/07/19 08/07/19 08:37 10:18 14:57 Temp 98.7 98.4 98.7 98.4 Pulse 108 96 104 Resp 18 20 B/P (MAP) 155/70 119/57 (77) 110/50 (70) Pulse Ox 96 98 O2 Delivery Room Air Room Air Intake and Output 08/06/19 08/06/19 08/07/19 15:00 23:00 07:00 Intake Total 800 ml 420 ml Output Total 420 ml 1250 ml 200 ml Balance 380 ml -1250 ml 220 ml EUGENE DREW APRN Aug 07, 2019 15:44
--- NOTE | 2019-08-07 17:16 | NUR ---
Discharge Instructions reviewed with patient and , education on prevena vac and incision care given, prescriptions called in to [facility]. Patient and verbalize understanding.
== END 2019-08-07 16:40 | disposition home health service (06) | DRG 252 ==
LOC: OPSVCIP 05:50 → 2 SOUTH 15:47
PROVIDERS: ADMIT Surgery Vascular Surgery; ATTEND Surgery Vascular Surgery
PROC: 06BQ0ZZ Excision of Left Saphenous Vein, Open Approach (ICD-10-PCS; 2019-08-05)
PROC: 041L09N Bypass Left Femoral Artery to Posterior Tibial Artery with Autologous Venous Tissue, Open Approach (ICD-10-PCS; principal; 2019-08-05 07:30)
DX: I70.202 Unspecified atherosclerosis of native arteries of extremities, left leg (principal); E43 Unspecified severe protein-calorie malnutrition; I70.92 Chronic total occlusion of artery of the extremities; D62 Acute posthemorrhagic anemia; N18.3 Chronic kidney disease, stage 3 (moderate); D50.9 Iron deficiency anemia, unspecified; D63.1 Anemia in chronic kidney disease; E11.22 Type 2 diabetes mellitus with diabetic chronic kidney disease; E11.51 Type 2 diabetes mellitus with diabetic peripheral angiopathy without gangrene; E11.621 Type 2 diabetes mellitus with foot ulcer; M19.90 Unspecified osteoarthritis, unspecified site; E78.5 Hyperlipidemia, unspecified; F41.9 Anxiety disorder, unspecified; I12.9 Hypertensive chronic kidney disease with stage 1 through stage 4 chronic kidney disease, or unspecified chronic kidney disease; L97.529 Non-pressure chronic ulcer of other part of left foot with unspecified severity; I25.10 Atherosclerotic heart disease of native coronary artery without angina pectoris; Z82.49 Family history of ischemic heart disease and other diseases of the circulatory system; Z85.46 Personal history of malignant neoplasm of prostate; Z87.891 Personal history of nicotine dependence
CPT/HCPCS: 36415; 80048; 80053; 82728; 82962; 83540; 83550; 83735; 84100; 85025; 86850; 86900; 86901; A7015; J0360; J0690; J0696; J0780; J1100; J1644; J1756; J2001; J2405; J2440; J2704; J2710; J3010; J3475; J3490; J7030; J7040; J7120; Q9967; 97110; 97116; G0378

== ENCOUNTER 2019-09-29 06:45 | Outpatient (CLI) | payer MEDICARE ==
[~2019-09-29] VITALS: Ht 172.7 cm; Wt 79.4 kg
[2019-09-29] VITALS (12 sets, daily range): BP systolic 117–161; BP diastolic 57–75
[~2019-09-29 06:45] MED LIST changes: +METO25TA4 PO
[2019-09-29 07:26] LABS: HEMATOCRIT 35.1 % (39.0-53.0); HEMOGLOBIN 10.8 g/dL (13.0-17.5); RED BLOOD COUNT 4.76 x10^6/uL (4.30-5.70)
[2019-09-29] MEDS ORDERED: LIDOCAINE 1% Multi-Dose 20 ML VIAL. ONE (07:32)
[2019-09-29] MEDS ORDERED: IODIXANOL 320 MG/ML 100 ML VIAL. ONE (07:33)
[2019-09-29 07:37] LABS: PROTHROMBIN TIME PATIENT 16.1 SEC (11.7-14.0)
[2019-09-29 07:58] LABS: CALCIUM 9.7 mg/dL (8.5-10.1); CREATININE 1.5 mg/dL (0.7-1.3); GFR 54.5; POTASSIUM 3.8 mmol/L (3.5-5.1)
[2019-09-29] MEDS ORDERED: IODIXANOL 320 MG/ML 100 ML VIAL. IART ONE (08:00)
[2019-09-29] MEDS ORDERED: MIDAZOLAM HCL/PF 2 MG/2 ML VIAL. IV ONE (08:00)
[2019-09-29] MEDS ORDERED: LIDOCAINE 1% Multi-Dose 20 ML VIAL. INJ ONE (08:00)
[2019-09-29] MEDS ORDERED: fentaNYL PF VIAL 100 MCG/2 ML VIAL IV ONE (08:00)
[2019-09-29] MEDS ORDERED: HEPARIN for IV BOLUS 10,000 UNIT/10 ML VIAL. ONE (08:44)
[2019-09-29] MEDS ORDERED: HEPARIN for IV BOLUS 10,000 UNIT/10 ML VIAL. IV ONE (09:00)
[2019-09-29] MEDS ORDERED: OXYC1TAB15 PO (09:08)
[2019-09-29] MEDS ORDERED: CLOP75TA PO (09:08)
[2019-09-29] MEDS ORDERED: FERR325T14 PO (09:08)
[2019-09-29] MEDS ORDERED: MULT-658 PO (09:08)
[2019-09-29] MEDS ORDERED: vitamin D PO (09:08)
[2019-09-29] MEDS ORDERED: ACETAMINOPHEN 325 MG TABLET. PO PRN (10:00)
[2019-09-29] MEDS ORDERED: NITROGLYCERIN SUBLINGUAL 0.4 MG BOTTLE OF 25. SL PRN (10:00)
[2019-09-29] MEDS ORDERED: 0.9 % SODIUM CHLORIDE 10 ML DISP.SYRIN. IV PRN (10:00)
[2019-09-29] MEDS ORDERED: ATROPINE 0.5 MG/5 ML DISP.SYRINGE. IV PRN (10:00)
[2019-09-29] MEDS ORDERED: LIDOCAINE 2% 100 MG/5 ML SYRINGE. IV PRN (10:00)
[2019-09-29] MEDS ORDERED: AMIODARONE 150 MG in IV DEXTROSE 5% 100ML 100 ML IV PRN (10:00)
--- NOTE | 2019-09-29 10:13 | PDOC ---
BRIEF OPERATIVE NOTE Date: Sep 29, 2019 Pre-Op Diagnosis Atherosclerosis with left leg claudication Post-Op Diagnosis Same Procedure Performed Percutaneous endovascular balloon angioplasty of the left midsegment bypass graft along the superficial femoral location using 4 x 2 50 impact Adm. drug- eluting balloon (CPT code 61218) Percutaneous endovascular balloon angioplasty of the left posterior tibial artery and bypass graft distal anastomosis using a 3 tapering to a 3.5 mm angioplasty balloon open sees CPT code 81228) Abdominal aortogram (sees CPT code 99491-73) Selective left lower extremity angiogram (86135-03) Ultrasound-guided access of the right common femoral artery (74917-44) Right common femoral artery Belle close Surgeon Lulu Malhotra, DO, FACS, RPVI Anesthesia Type: Local Blood Loss Minimal Complications None Operative Note Patient was brought to the catheterization suite and placed in the supine position. He was prepped and draped in sterile fashion. A timeout procedure was performed confirming the procedure and the patient's preoperative laboratory blake ues. Next a sterile ultrasound probe was utilized to locate the right common femoral artery. 1% lidocaine was next infiltrated. Using ultrasound guidance the right common femoral artery was directly accessed using a micropuncture needle under direct ultrasound guidance. A microwire was inserted under fluoroscopy guidance. Next a small skin incision was made, the needle was removed, and a micro-sheath was inserted. An 035 Glidewire advantage wire was placed into the abdominal aorta under fluoroscopy guidance. Our micro-sheath was exchanged for a 5 Panamanian short sheath which was appropriately flushed. Next a flush catheter was inserted into the abdominal aorta at the level of L1 and an abdominal aortogram was performed. The abdominal aortogram findings are as follows: The proximal mid and distal abdominal aorta are widely patent. There is a common iliac stent in the left common iliac artery which is widely patent the right common iliac artery is widely patent. The right and left external iliac arteries are widely patent. The right and left hypogastric arteries are widely patent. Next At this point in time our catheter was utilized to select the left iliac system and a Glidewire advantage wire was positioned into the left lower extremity bypass. Our 5 Panamanian sheath was exchanged for a 6 Panamanian 45 cm destination sheath which was placed into the left lower extremity bypass graft. The patient was heparinized per weightbase protocol at this point. Next Left lower extremity selective angiogram was next performed. The left lower extremity and gram findings are as follows: The bypass graft is nearly occluded throughout its distal segment and a small and underfilled. The proximal portion of the graft is patent through a AV fistula collateralizing to the deep venous system. The distal below-knee popliteal artery is small and narrowed. There is 2 vessel runoff through what appears to be the posterior tibial artery and peroneal artery to the foot. Next At this point in time an 014 command wire was placed into the distal portion of the bypass and ultimately into the posterior tibial artery. Following this a 3 mm tapering to a 3.5 mm angioplasty balloon was positioned into the posterior tibial artery transitioning into the origin of the bypass. These vessels were angioplastied to nominal pressure. I continued to balloon the entire portion of the bypass up to the proximal anastomosis with the same balloon. There was significant waste on the balloon indicating impending failure of the bypass. Completion angiogram revealed markedly improved flow through the bypass graft but still a very small venous segment. I ballooned the central portion of the bypass graft with a drug-eluting balloon with a 4 mm x 250 mm followed by a 4 x 200 mm. Completion angiogram revealed markedly improved flow following balloon angioplasty. I next pulled our sheath back into the common femoral artery on the left and performed an oblique angiogram at the proximal anastomosis. This revealed that the proximal anastomosis of the bypass was widely patent. At this point in time our wires were removed and her sheath was removed into the right iliac system. A did confirm the vessel safer closure in this location. A Belle close device was inserted the plate successfully. The patient had excellent hemostasis at the access site. He was transferred to the post catheterization area in stable condition. Lulu Malhotra DO, FACS, RPVI LULU MALHOTRA DO Sep 29, 2019 10:13
--- NOTE | 2019-09-29 13:35 | NUR ---
Discharge Note: JIL NOLAN Discharge instructions and discharge home medications reviewed with Spouse and a copy given. All questions have been answered and understanding verbalized. The following instructions and handouts were given: moderate sedation, groin care and angioplasty. Discontinued lines and drains: PIV right forearm, dressing clean dry intact. Patient discharged to home with via wheelchair to private vehicle.
== END 2019-09-29 13:35 | disposition home or self-care (01) ==
LOC: CCL 06:45
PROVIDERS: ATTEND Surgery
DX: I70.212 Atherosclerosis of native arteries of extremities with intermittent claudication, left leg (principal)
CPT/HCPCS: 36415; 37224; 37228; 75625; 75710; 76937; 80048; 85027; 85610; 99152; 99153; C1725; C1760; C1769; C1892; C1894; C2623; J1644; J2250; J3010; Q9967; G0269; C1771